=== PATIENT | female | born 1990 | race Caucasian/White ===

== ENCOUNTER 2023-04-23 14:52 | Outpatient (OUT) | payer OTHER, SELFPAY ==
--- NOTE | 2023-04-23 | XR_ITS ---
The [address] [address] Patient Name: IVETTE COREY MRN: [id number] date: 1990 Sex: F Assigned Patient Location: Current Patient Location: Accession/Order Number: [id number] Exam Date: 04/23/2023 15:03 Report Date: 04/23/2023 15:38 At the request of: MEENAKSHI PRIEST Procedure: XR foot [place] min 3V EXAMINATION: XR foot [place] min 3V HISTORY: BILATERAL FOOT PAIN COMPARISON: No relevant comparison available. FINDINGS: RIGHT FINDINGS: BONES: No acute fracture or dislocation. Moderate to severe hallux valgus. Degenerative changes of the first metatarsal-phalangeal joint with joint space narrowing and subchondral cystic changes SOFT TISSUES: Negative. No visible soft tissue swelling. OTHER: Negative. LEFT FINDINGS: BONES: No acute fracture or dislocation. Mild hallux valgus SOFT TISSUES: Negative. No visible soft tissue swelling. OTHER: Negative. XR/XR foot [place] min 3V IMPRESSION: RIGHT CONCLUSION: Moderate to severe hallux valgus LEFT CONCLUSION: Mild hallux valgus Electronically authenticated by: AI VERA Date: 04/23/2023 15:38
== END 2023-04-23 14:53 | disposition home or self-care (01) ==
LOC: EC 14:53
PROVIDERS: Visit Provider Podiatrist Foot & Ankle Surgery
DX: M79.672 Pain in left foot (principal); M79.671 Pain in right foot; M20.12 Hallux valgus (acquired), left foot; M20.11 Hallux valgus (acquired), right foot
CPT/HCPCS: 73630

== ENCOUNTER 2023-05-26 13:19 | Outpatient (OUT) | payer OTHER, SELFPAY ==
--- NOTE | 2023-05-26 13:51 | P.GSHP_ITS ---
History of Present Illness History of Present Illness Chief complaint: hallux valgus and hammertoe right foot Narrative: Patient presents for preadmission testing. The patient reports bunion deformities on both feet, she states she has had bunions for years but noticed they have been worsening as time goes on. She states she wears steel toed boots for work which exacerbates her pain. She states she did try some shoe inserts with no relief of her discomfort. She denies numbness, tingling, weakness, or any other complaints. Review of Systems ROS Narrative REVIEW OF SYSTEMS: Negative except as stated in HPI, ten or more systems reviewed. Constitutional: No fever , chills, weakness ENT: No sore throat or epistaxis Cardiovascular: No edema, chest pain, palpitations, or activity intolerance Respiratory: No shortness of breath, cough, or wheezing Gastrointestinal: No abdominal pain, constipation, diarrhea, or vomiting Genitourinary: No dysuria or hematuria Neurological: No numbness, tingling, weakness, or headache Psychiatric: No mood changes PFSH PFSH Medical History (Updated 05/26/23 @ 13:39 by Radha Bell NP) Foot pain ?M79.673 - Pain in unspecified foot (ICD-10) Hammertoe ?M20.40 - Other hammer toe(s) (acquired), unspecified foot (ICD-10) Hallux valgus ?M20.10 - Hallux valgus (acquired), unspecified foot (ICD-10) Pneumonia ?J18.9 - Pneumonia, unspecified organism (ICD-10) Surgical History (Updated 05/26/23 @ 13:39 by Radha Bell NP) History of tonsillectomy ?Z90.89 - Acquired absence of other organs (ICD-10) Family History (Updated 05/26/23 @ 13:39 by Radha Bell NP) Other Family history of breast cancer Family history of diabetes mellitus Family history of heart disease Family history of hypertension Social History (Updated 05/26/23 @ 13:36 by Radha Bell NP) Within the past year, how often did you have a drink containing alcohol: 2-3 times a week Smoking status: Former smoker Non-prescribed substance use: denies use 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 Highest level of school completed/degree received: some college, no degree Meds Home Medications and Allergies Home Medications ?Medication ?Instructions ?Recorded ?Confirmed ?Type norgestimate 0.25 mg-ethinyl 1 tab PO DAILY 05/26/23 05/26/23 History estradiol 35 mcg tablet (Karen) Allergies Allergy/AdvReac Type Severity Reaction Status Date / Time No Known Drug Allergies Allergy Verified 05/26/23 13:34 Exam Narrative Exam Narrative: Constitutional: Awake, alert, comfortable, well-appearing, nontoxic, interactive, vital signs as charted Head: Normocephalic, atraumatic Neck: Supple, normal appearance, normal range of motion, no meningeal signs, no lymphadenopathy Respiratory: No respiratory distress, breath sounds clear Cardiovascular: Regular rate and rhythm, strong and regular heart tones Musculoskeletal: Normal gait, no swelling or edema, Right foot hallux valgus deformity noted, limited range of motion of the 1st MPJ, 2nd toe deformity noted, good capillary refill, sensation intact Skin: No rashes or induration, no lesions, only visible skin inspected Neuro: No neurological deficits, normal sensation Psychiatric: Oriented ?3, normal affect Assessment and Plan Assessment and Plan (1) Foot pain: (2) Hammertoe: (3) Hallux valgus: Plan Right 1st metatarsal phalangeal joint fusion, correction of 2nd hammertoe and bone graft as needed scheduled with Dr. Bland 06/05/2023.
== END 2023-05-26 13:20 | disposition home or self-care (01) ==
LOC: PST 13:20
PROVIDERS: Visit Provider Podiatrist Foot & Ankle Surgery
DX: Z01.818 Encounter for other preprocedural examination (principal); M20.11 Hallux valgus (acquired), right foot; M20.41 Other hammer toe(s) (acquired), right foot
CPT/HCPCS: G0463

== ENCOUNTER 2023-06-05 06:04 | Day surgery (SDC) | payer OTHER, SELFPAY ==
[2023-05-26 13:49] VITALS: BP 117/76; PULSE 57; TEMP 36.3; O2SAT 100; BMI 29.1
[2023-06-05] VITALS (9 sets, daily range): BP systolic 107–131; BP diastolic 54–84; PULSE 69–88; TEMP 36.2–36.4; O2SAT 94–99; BMI 28.2
--- OUTSIDE RECORDS SUMMARY | 2023-06-05 06:08 | XMS_ITS | CCD ---
Author Organization [facility] Care Team Providers Care Pressure Tester Name Role Phone Unavailable Primary Care Provider Unavailabl e None, None Primary Care Provider Unavailabl e None, None Primary Care Provider Unavailabl e POOL, ELLY E Referring Unavailable NONE, NONE Primary Care Unavailable Medications Current Medications Medication Drug Class(es) Dates Sig (Normalized) Sig (Original) acetaminophen 325 mg oral tablet (1 source) Start: 09-11-2020 take 650 mg by mouth every four hours as needed for fever, then take 4000 mg by mouth every twenty-four hours as needed for fever 650 mg, Oral, EVERY 4 HOURS PRN, Fever, Fever >100.5 F (38 C) or pain 1-10, Starting on Fri09/11/20 at 0156 Maximum dose of acetaminophen is 4000 mg from all sources in 24 hours. benzocaine 200 mg/ml / menthol 5 mg/ml topical spray (1 source) Standardized Chemical Allergen Start: 09-11-2020 apply 1 dose topically twice daily Topical, 2 TIMES DAILY, First dose on Fri09/11/20 at 0215 Apply to perineal area. Patient is capable and may self administer at bedside. docusate sodium 100 mg oral capsule (1 source) Start: 09-11-2020 take 100 mg by mouth twice daily as needed for constipation 100 mg, Oral, 2 TIMES DAILY PRN, Constipation, Starting on Fri09/11/20 at 0156 Do not crush or break. ethinyl estradiol 0.035 mg / norgestimate 0.25 mg oral tablet (5 sources) Progestin, Estrogen Start: 03-12-2023 take 1 tablet by mouth once daily, then take 0.25-35 tablets by mouth once norgestimate-ethiny l estradiol (KATERIN) 0.25-35 MG-MCG per tablet Indications: care following vaginal delivery TAKE 1 TABLET BY MOUTH EVERY DAY 84 tablet 3 03/12/2023 Active Start: 03-06-2022 take 1 tablet by yoko th once daily, then take 0.25-35 tablets by mouth once norgestimate-ethinyl estradiol (KATERIN) 0.25-35 MG-MCG per tablet Indications: care following vaginal delivery TAKE 1 TABLET BY MOUTH EVERY DAY 84 tablet 3 03/06/2022 Active Start: 10-26-2020 take 1 tablet by yoko th once daily norgestimate-ethinyl estradiol (ORTHO-CYCLEN, 28,) 0.25-35 MG-MCG per tablet Indications: care following vaginal delivery Take 1 tablet by mouth daily 3 packet 3 10/26/2020 Active ibuprofen 800 mg oral tablet (1 source) Nonsteroidal Anti-inflammatory Drug Start: 09-11-2020 take 800 mg by mouth every eight hours 800 mg, Oral, EVERY 8 HOURS, First dose on Fri09/11/20 at 0215 Do not crush or break. lanolin 1000 mg/ml topical cream (1 source) Start: 09-11-2020 Topical, PRN, Dry Skin, nipple discomfort, Starting on Fri09/11/20 at 0156, oxytocin (PITOCIN) 10 unit bolus from the bag (1 source) Start: 09-10-2020 oxytocin (PITOCIN) 10 unit bolus from the bag 3 ml sodium chloride 9 mg/ml injection (3 sources) Start: 09-11-2020 10 mL, Intravenous, EVERY 12 HOURS SCHEDULED (2 times per day), First dose on Fri09/11/20 at 0900, Start: 09-11-2020 take 25 mL intraveno usly every hour as needed 25 mL, Intravenous, at 100 mL/hr, PRN, If patient receiving piggyback infusions without ordered maintenance IV fluids or with frequent/long duration piggyback infusions, Starting on Fri09/11/20 at 0156 Administer at the same rate as the piggyback being infused. Start: 09-11-2020 take 10 mL intravenously once 10 mL, Intravenous, PRN, Line Care, Starting on Fri09/11/20 at 0156 After every IV line use witch nessa 500 mg/ml medicated pad (1 source) Start: 09-11-2020 apply 1 dose topically twice daily Topical, 2 TIMES DAILY, First dose on Fri09/11/20 at 0215 Apply to perineal area. Patient is capable and may self administer at bedside. Completed/Discontinued Medications Medication Drug Class(es) Dates Sig (Normalized) Sig (Original) calcium chloride 0.0014 meq/ml / potassium chloride 0.004 meq/ml / sodium chloride 0.103 meq/ml / sodium lactate 0.028 meq/ml injectable solution (1 source) Start: 09-10-2020 End: 09-11-2020 lactated ringers infusion 10 ml lidocaine hydrochloride 10 mg/ml injection (1 source) Antiarrhythmic, Amide Local Anesthetic Start: 09-10-2020 End: 09-11-2020 lidocaine PF 1 % injection 30 mL 1 ml nalbuphine hydrochloride 10 mg/ml injection (1 source) Opioid Agonist/Antagonis t Start: 09-10-2020 End: 09-11-2020 nalbuphine (NUBAIN) injection 10 mg oxytocin (PITOCIN) 30 units in 500 mL infusion (1 source) Start: 09-10-2020 End: 09-11-2020 oxytocin (PITOCIN) 30 units in 500 mL infusion Vit-Fe Fumarate-FA ( VITAMIN PO) (7 sources) End: 09-11-2020 Vit-Fe Fumarate-FA ( VITAMIN PO) Take by mouth 0 09/11/2020 Discontinued Vit-Fe Fumarate-FA ( VITAMIN PO) Take by mouth 0 Active Problems Active Problems Problem Classification Problem Date Documented Date Episodic/Chronic Cancer of cervix (1 source) Low grade squamous intraepithelial lesion on cervical Papanicolaou smear; Translations: [Low grade squamous intraepithelial lesion on cytologic smear of cervix (LGSIL)] Episodic Immunizations and screening for infectious disease (2 sources) Contact with and (suspected) exposure to infections with a predominantly sexual mode of transmission; Translations: [Patient encounter status] Episodic Menstrual disorders (2 sources) Amenorrhea; Translations: [Amenorrhea] Chronic Other female genital disorders (1 source) Abnormal vaginal bleeding; Translations: [Abnormal uterine and vaginal bleeding, unspecified] Chronic Other female genital disorders (1 source) Cervical intraepithelial neoplasia grade 1; Translations: [Mild cervical dysplasia] Episodic Other and delivery including normal (20 sources) Urine test positive; Translations: [Normal ] Onset: 01-14-2021 Resolved: 10-26-2020 03-09-2020 Episodic Other screening for suspected conditions (not mental disorders or infectious disease) (1 source) Patient encounter status; Translations: [Encounter for screening for diabetes mellitus] Episodic Residual codes; unclassified (1 source) Gestation period, 17 weeks; Translations: [17 weeks gestation of ] Episodic Residual codes; unclassified (1 source) Gestation period, 13 weeks; Translations: [13 weeks gestation of ] Episodic Residual codes; unclassified (1 source) Gestation period, 26 weeks; Translations: [26 weeks gestation of ] Episodic Residual codes; unclassified (1 source) Gestation period, 37 weeks; Translations: [37 weeks gestation of ] Episodic Past or Other Problems Problem Classification Problem Date Documented Da te Episodic/Chronic NEGATED: Highlighted row has been ruled out!Unclassified (2 sources) No known active problems Results Test Name Value Interpretation Reference Range Facil ity Cytology Reporton 03-12-2023 Cytology report Cyto stain.thin prep Doc (Cvx/Vag) (NOTE) Path Number: [id number] DIAGNOSIS Imaged ThinPrep Pap - Cervical (1 monolayer slide): Specimen Adequacy: Satisfactory for evaluation. -Endocervical/trans formation zone component is absent. Descriptive Diagnosis: Negative for intraepithelial lesion or malignancy. [employer] Screener: EY Electronically Signed Out Ronak MELENDEZ(ASCP) /04/01/2023 Source of Specimen: A: Imaged ThinPrep Pap - Cervical (1 monolayer slide) HPV Reflex?............ 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 The Pap smear is a screening test primarily for squamous epithelial lesions, which is subject to both false negative and false positive results. Your patient should be reminded to consult you immediately if she experiences any suspicious signs or symptoms, regardless of her Pap smear result. GYNECOLOGIC CYTOLOGY REPORT Patient Name: IVETTE COREY [place] [facility] Rec: [id number] [facility] [employer] [facility] ANATOMIC PATHOLOGY [address] [place] [address]. [place], [place] [address] Normal [facility] CBC With Auto Differentialon 01-11-2021 Absolute Eos # 0.07 [facility] Absolute Immature Granulocyte <0.03 [facility] Absolute Lymph # 2.01 [facility] alth Absolute Coles # 0.45 [facility] lt Basophils (Bld) [#/Vol] 0.03 10*3/uL [facility] Basophils/100 WBC (Bld) 1 % 0 - 2 % [facility] Differential Type NOT REPORTED [facility] Eosinophils/100 WBC (Bld) 1 % 1 - 4 % [facility] Hematocrit (Bld) [Volume fraction] 40.3 % 36.3 - 47.1 % [facility] Hemoglobin.gastrointesti nal spec 1 Ql (Stl) 13.2 g/dL 11.9 - 15.1 g/dL [facility] Immature granulocytes/100 WBC (Bld) 0 % 0 [facility] Lymphocytes/100 WBC (Bld) 39 % 24 - 43 % [facility] MCH (RBC) [Entitic mass] 30.9 pg 25.2 - 33.5 pg [facility] MCHC (RBC) [Mass/Vol] 32.8 g/dL 28.4 - 34.8 g/dL [facility] MCV (RBC) [Entitic vol] 94.4 fL 82.6 - 102.9 fL [facility] Monocytes/100 WBC (Bld) 9 % 3 - 12 % [facility] NRBC Automated 0.0 0.0 per 100 WBC [facility] Platelet distribution width (Bld) [Ratio] 11.8 % 11.8 - 14.4 % [facility] Platelet Estimate NOT REPORTED [facility] Platelet mean volume (Bld) [Entitic vol] 9.5 fL 8.1 - 13.5 fL [facility] Platelets (Bld) [#/Vol] 239 10*3/uL [facility] RBC (Bld) [#/Vol] 4.27 10*6/uL 3.95 - 5.1 1 m/uL [facility] RBC (Bld) [#/Vol] NOT REPORTED [facility] Segmented neutrophils/100 WBC (Bld) 50 % 36 - 65 % [employer] Segs Absolute 2.61 [employer] h WBC (Bld) [#/Vol] 5.2 10*3/uL [facility] WBC (Bld) [#/Vol] NOT REPORTED [facility] hCG, Quantitative, on 01-11-2021 hCG Quant <1 <5 IU/L [employer] Comment on above: Non-preg premeno <=5 Postmeno <=8 Male <=3 If HCG results do not concur with clinical observations, additional testing to confirm results is recommended. Elevated results not associated with may be found in patients with other diseases such as tumors of the germ cells (testis, ovaries, etc.), bladder, pancreas, stomach, lungs, and liver. [employer] [employer] CBC auto differentialOrdered By: Elly Lerner on 09-10-2020 Absolute Eos # 0.07 [employer] Work Phone: Absolute Immature Granulocyte 0.12 [employer] Work Phone: Absolute Lymph # 2.16 [employer] [facility] Work Phone: Absolute Coles # 0.75 [employer] Work Phone: Basophils (Bld) [#/Vol] 0.03 10*3/uL [employer] Work Phone: Basophils/100 WBC (Bld) 0 % 0 - 2 % [facility] Work Phone: Differential Type NOT REPORTED [employer] Work Phone: Eosinophils/100 WBC (Bld) 1 % 1 - 4 % [facility] Work Phone: Hematocrit (Bld) [Volume fraction] 39.0 % 36.3 - 47.1 % [facility] Work Phone: Hemoglobin.gastrointesti nal spec 1 Ql (Stl) 13.3 g/dL 11.9 - 15.1 g/dL [employer] Work Phone: Immature granulocytes/100 WBC (Bld) 1 % High 0 [facility] Work Phone: Interpretation and review of laboratory results Abnormal [employer] Phone: Lymphocytes/100 WBC (Bld) 23 % Low 24 - 43 % [employer] Phone: MCH (RBC) [Entitic mass] 33.4 pg 25.2 - 33.5 pg [employer] Phone: MCHC (RBC) [Mass/Vol] 34.1 g/dL 28.4 - 34.8 g/dL [employer] Phone: MCV (RBC) [Entitic vol] 98.0 fL 82.6 - 102.9 fL [employer] Phone: Monocytes/100 WBC (Bld) 8 % 3 - 12 % [facility] Phone: NRBC Automated 0.0 0.0 per 100 WBC [employer] Phone: Platelet distribution width (Bld) [Ratio] 12.5 % 11.8 - 14.4 % [employer] Phone: Platelet Estimate NOT REPORTED [employer] Phone: Platelet mean volume (Bld) [Entitic vol] 9.4 fL 8.1 - 13.5 fL [employer] Phone: Platelets (Bld) [#/Vol] 157 10*3/uL [employer] Phone: RBC (Bld) [#/Vol] 3.98 10*6/uL 3.95 - 5.1 1 m/uL [employer] Phone: RBC (Bld) [#/Vol] NOT REPORTED [facility] Phone: Segmented neutrophils/100 WBC (Bld) 67 % High 36 - 65 % [employer] Phone: Segs Absolute 6.09 [employer] Work Phone: WBC (Bld) [#/Vol] 9.2 10*3/uL [facility] Work Phone: WBC (Bld) [#/Vol] NOT REPORTED [facility] Work Phone: [facility] Work Phone: DRUG SCREEN MULTI URINEOrder ed By: Elly Lerner on 09-10-2020 Amphetamine Screen, Ur Negative NEGATIVE [facility] Work Phone: Barbiturate Screen, Ur Negative NEGATIVE [facility] Work Phone: Benzodiazepine Screen, Urine Negative NEGATIVE [facility] Work Phone: Buprenorphine Urine Negative NEGATIVE [facility] Work Phone: Cannabinoid Scrn, Ur Negative NEGATIVE [facility] Work Phone: Cocaine Metabolite, Urine Negative NEGATIVE [facility] Work Phone: MDMA, Urine NOT REPORTED NEGATIVE [facility] Work Phone: Methadone Screen, Urine Negative NEGAT[facility] Work Phone: Methamphetamine, Urine Negative NEGATIVE [facility] Work Phone: Opiates, Urine Negative NEGATIVE [facility] Work Phone: Oxycodone Screen, Ur Negative NEGATIVE [facility] Work Phone: Phencyclidine, Urine Negative NEGATIVE [facility] Work Phone: Propoxyphene, Urine Negative NEGATIVE [facility] Work Phone: Test Information NOT REPORTED [facility] Work Phone: Tricyclic Antidepressants, Urine Negative NEGATIVE [facility] Work Phone: Comment on above: Drug screen results are to be used for medical purposes only. All positive results are unconfirmed. Testing for employment or legal uses should be sent to a reference laboratory for confirmation. [facility] Work Phone: OB FOLLOW UP TRANSABDOMIN AL APPROACHon 07-05-2020 US OB FOLLOW UP TRANSABDOMINAL APPROACH 31.0 WK IUP EFW:65% CL:3.6cm UYEN:17.7cm HR:158bpm posterior placenta, cephalic presentation Active movements Grade 2 placenta Interpreted by: CARLEY Campos CNM, MD Signed by: Haseeb Montero MD 07/05/20 Final result Normal [facility] Glucose tolerance, 1 hourOrd ered By: Elly Lerner on 06-19-2020 GLU ADMN Glucola [facility] Phone: Glucose tolerance screen 50g 104 mg/dL 70 - 135 mg/dL [employer] Phone: HemoglobinOrdered By: Roxann Lerner on 06-19-2020 Hemoglobin.gastrointesti nal spec 1 Ql (Stl) 11.8 g/dL Low 11.9 - 15.1 g/dL [facility] Phone: Interpretation and review of laboratory results Abnormal [facility] Phone: US OB 14 PLUS WEEKS SINGLE O R FIRST GESTATIONon 04-26-2020 OB 14 PLUS WEEKS SINGLE OR FIRST GESTATION 20.0WK IUP CL: 4.3 cm HR: 155 bpm Posterior placenta, breech presentation Ovaries: Adnexa WNL Gender: male Active movements All visualized anatomy WNL Interpreted by: CARLEY Campos CNM, MD Signed by: Haseeb Montero MD 04/26/20 Final result Normal [facility] HIV Screenon 02-08-2020 HIV Ag/Ab NONREACTIVE NONREACTIVE [place], [place] Comment on above: No laboratory eviden ce of HIV infection. If acute HIV infection is suspected, consider testing for HIV-1 RNA. TYPE AND SCREENon 1 04-10-2019 ABO/Rh Positive [place], [place] Urine Drug Screen, Comprehen siveon 02-08-2020 Amphetamine Screen, Ur Negative NEGATIVE [place], [place] Barbiturate Screen, Ur Negative NEGATIVE [facility] [place] [place] Benzodiazepine Screen, Urine Negative NEGATIVE [facility] [place] Buprenorphine Urine Negative NEGATIVE [facility] [place] [place] Cannabinoid Scrn, Ur Negative NEGATIVE [facility] [place] [place] Cocaine Metabolite, Urine Negative NEGATIVE [facility] [place] MDMA, Urine NOT REPORTED NEGATIVE [facility] [place] Methadone Screen, Urine Negative NEGATIVE [facility] [place] [place] Methamphetamine, Urine Negative NEGATIVE [facility] [place] [place] Opiates, Urine Negative NEGATIVE [facility] [place] Oxycodone Screen, Ur Negative NEGATIVE [facility] [place] [place] Phencyclidine, Urine Negative NEGATIVE [facility] [place] [place] Propoxyphene, Urine Negative NEGATIVE [facility] [place] [place] Test Information NOT REPORTED [facility]- [place], [place] Tricyclic Antidepressants, Urine Negative NEGATIVE [facility] [place] [place] Comment on above: Drug screen results are to be used for medical purposes only. All positive results are unconfirmed. Testing for employment or legal uses should be sent to a reference laboratory for confirmation. Vital Signs Date Time Vital Sign Value Performing Clinician Kika peck 09-12-2020 13:51-0400 Body temperature 97.9 [degF] [employer] Work Phone: [facility] Phone: 09-12-2020 13:51-0400 Diastolic blood pressure 77 mm[Hg] [employer] Work Phone: [facility] Phone: 09-12-2020 13:51-0400 Heart rate 103 /min [employer] Work Phone: [facility] Phone: 09-12-2020 13:51-0400 Respiratory rate 18 /min [employer] Work Phone: [facility] Phone: 09-12-2020 13:51-0400 Systolic blood pressure 129 mm[Hg] [employer] Work Phone: [facility] Phone: Encounters Encounter Date Encounter Type Care Provider Facility Start: 03-12-2023 End: 03-13-2023 ambulatory ELLY Shah [facility] Start: 03-12-2023 Encounter for gynecological examination (general) (routine) without abnormal findings [facility] Start: 03-12-2023 End: 03-12-2023 Patient encounter procedure None None [facility] Start: 03-12-2023 End: 03-12-2023 Subsequent hospital visit by physician None None [facility] Laboratory Comment on above: Well woman exam with routine gynecological exam Start: 03-06-2022 End: 03-06-2022 Patient encounter procedure None None [facility] Start: 03-06-2022 End: 03-06-2022 Subsequent hospital visit by physician None None [facility] Comment on above: Well woman exam with routine gynecological exam; Screening for HPV (human papillomavirus); Dysplasia of cervix, low grade (BECKY 1) Start: 01-11-2021 End: 01-11-2021 Subsequent [facility] Comment on above: Abnormal vaginal ble eding Start: 01-03-2021 End: 01-03-2021 Subsequent hospital visit by [facility] Comment on above: 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 Start: 09-10-2020 End: 09-12-2020 Evaluation and management of inpatient Elly Lerner LICENSED PRACTICAL NURSE - CNM Work Phone: [facility] Start: 08-24-2020 End: 08-24-2020 Subsequent hospital visit by physician [facility] Comment on above: 37 weeks gestation o f Start: 06-19-2020 End: 06-19-2020 Subsequent hospital visit by physician [facility] Comment on above: Encounter for screen ing examination for impaired glucose regulation and diabetes mellitus; 26 weeks gestation of Start: 04-06-2020 End: 04-06-2020 Subsequent hospital visit by physician [facility] Comment on above: 17 weeks gestation o f ; Encounter for supervision of normal first , second trimester Start: 03-09-2020 End: 03-09-2020 Subsequent hospital visit by physician [facility] Comment on above: 13 weeks gestation o f ; Chlamydia contact, treated Start: 02-08-2020 End: 02-08-2020 Subsequent hospital visit by physician [facility] Comment on above: Amenorrhea; Positive urine test; Encounter for supervision of normal first in first trimester Procedures Date Procedure Procedure Detail Performing Clinician Start: 03-06-2022 Microscopic observat ion [Identifier] in Cervix by Cyto stain None None Start: 01-11-2021 Gonadotropin chorion ic quantitative Elly E Pool LICENSED PRACTICAL NURSE - CNM Work Phone: Start: 09-10-2020 Blood count complete auto&auto difrntl wbc Elly E Pool LICENSED PRACTICAL NURSE - CNM Work Phone: Start: 09-10-2020 Drug screen class list a Elly E Pool LICENSED PRACTICAL NURSE - CNM Work Phone: Start: 06-19-2020 Blood count hemoglobin Elly E Pool LICENSED PRACTICAL NURSE - CNM Work Phone: Start: 03-09-2020 Microscopic observat ion [Identifier] in Cervix by Cyto stain Start: 02-08-2020 Antibody screen Start: 02-08-2020 Antibody hiv-1&hiv-2 single result Elly E Pool Work Phone: Start: 02-08-2020 Blood typing serologic abo Elly E Pool Work Phone: Start: 02-08-2020 Obstetric panel Kathlee n E Pool Work Phone: Start: 02-08-2020 Drug screen, qualitate/multi Elly E Pool Work Phone: Plan of Treatment Date Care Activity Detail Author Start: 07-05-2030 DTaP/Tdap/Td vaccine (8 - Td or Tdap) DTaP/Tdap/Td vaccine (8 - Td or Tdap) [facility] [employer] Start: 03-06-2027 Screening for malign ant neoplasm of cervix [facility] Start: 03-09-2025 Screening for malign ant neoplasm of cervix [facility] Start: 03-06-2025 Screening for malign ant neoplasm of cervix Pap smear [facility] Start: 03-15-2024 End: 03-15-2024 Patient encounter procedure 03/15/2024 1:00 PM EST Office Visit [facility] [address] [place] [address] Elly Lerner APRN - CNM [address] [place] [address] yearly [facility] Comment on above: yearly Start: 03-12-2024 Depression Screen Depression Screen [facility] Start: 03-12-2023 End: 03-12-2023 Patient encounter procedure 03/12/2023 Office Visit Obstetrics and Gynecology Elly Lerner APRN - CNM [address] [facility] [place] [address] [facility] Start: 03-09-2023 Screening for malign ant neoplasm of cervix [facility] Start: 09-24-2022 Influenza vaccination Flu vaccine (# 1) [facility] Start: 01-03-2022 End: 01-03-2022 Patient encounter procedure 01/03/2022 Office Visit Obstetrics and Gynecology Elly Lerner APRN - CNM [address] [place] [address] [facility] Start: 09-24-2021 Influenza vaccination Flu vaccine (# 1) [facility] Start: 01-15-2021 End: 01-15-2021 Patient encounter procedure 01/15/2021 Appointment Radiology [facility] Ultrasound Start: 10-25-2020 Influenza vaccination [facility] Start: 10-24-2020 End: 10-24-2020 ambulatory 10/24/2020 Visit Obstetrics and Gynecology Elly Lerner APRN - CNM [address] [place] [address] [facility] Start: 09-26-2020 End: 09-26-2020 Telemedicine consultation with patient 09/26/2020 Telemedicine Obstetrics and Gynecology Elly Lerner APRN - CNTiffani [address] [place] [address] [phone] [facility] Start: 09-11-2020 End: 09-11-2020 Patient encounter procedure 09/11/2020 Routine Obstetrics and Gynecology Winifred Torres, CARLEY - CNTiffani [address] [place] [address] [phone] [facility] Start: 09-07-2020 End: 09-07-2020 Patient encounter procedure 09/07/2020 Routine Obstetrics and Gynecology Elly Lerner APRN - CNM [address] [place] [address] [phone] [facility] Start: 08-30-2020 End: 08-30-2020 Patient encounter procedure 08/30/2020 Routine Obstetrics and Gynecology Elly Lerner APRN - SHUKRI [address] [place] [address] [phone] [facility] Start: 07-05-2020 End: 07-05-2020 Ancillary Procedure [facility] Start: 06-20-2020 End: 06-20-2020 Patient encounter procedure 06/20/2020 Routine Obstetrics and Gynecology Elly Lerner APRN - SHUKRI [address] [place] [address] [phone] [facility] Start: 04-26-2020 End: 04-26-2020 Ancillary Procedure [facility] Start: 04-20-2020 End: 04-20-2020 Office Visit 04/20/2020 Office Visit Obstetrics and Gynecology Elly Lerner APRN - CNTiff[place] [address] [place] [address] [phone] [facility] Start: 04-08-2020 Screening for malign ant neoplasm of cervix Cervical cancer screen [place], [place] Start: 04-06-2020 End: 04-06-2020 Routine 04/06/2020 Routine Obstetrics and Gynecology Elly Lerner APRN - SHUKRI [address] [place] [address] [phone] [facility] Start: 02-16-2020 End: 02-16-2020 Ancillary Procedure 02/16/2020 Ancillary Procedure Obstetrics and Gynecology Elly Lerner APRN - SHUKRI [address] [facility] [facility] [address] [place] [address] [phone] [facility] Start: 10-26-2019 Influenza vaccination Flu vaccine (# 1) [place], [place] Start: 2009 DTaP/Tdap/Td vaccine (1 - Tdap) DTaP/Tdap/Td vaccine (1 - Tdap) [place], [place] Start: 2006 COVID-19 Vaccine (1) COVID-19 Vaccin e (1) [facility] Work Phone: Start: 2002 COVID-19 Vaccine (1) COVID-19 Vaccin e (1) [facility] Start: 2002 Depression Screen Depression Screen [facility] Start: 06-19-1995 COVID-19 Vaccine (1) COVID-19 Vaccin e (1) [facility] Start: 02-18-1995 Varicella vaccine (2 of 2 - 2-dose childhood series) Varicella vaccine (2 of 2 - 2-dose childhood series) [facility] Start: 06-19-1991 Varicella vaccine (1 of 2 - 2-dose childhood series) Varicella vaccine (1 of 2 - 2-dose childhood series) [place] Start: 1990 COVID-19 Vaccine (#1) COVID-19 Vacci ne (#1) [facility] End: 04-06-2020 Alpha Fetoprotein, Maternal Alpha Fetoprotein, Maternal Lab Routine 17 weeks gestation of Encounter for supervision of normal first , second trimester 1 Occurrences starting 04/06/2020 until 04/06/2020 [employer] Phone: Comment on above: 1 Occurrences starti ng 04/06/2020 until 04/06/2020 Alpha Fetoprotein, Maternal Alpha Fetoprotein, Maternal Lab Routine 17 weeks gestation of Encounter for supervision of normal first , second trimester 04/06/2020 10:09 AM [employer] Phone: End: 03-09-2020 C.trachomatis N.gonorrhoeae DNA, Thin Prep C.trachomatis N.gonorrhoeae DNA, Thin Prep Microbiology Routine 13 weeks gestation of Chlamydia contact, treated 1 Occurrences starting 03/09/2020 until 03/09/2020 [place] Comment on above: 1 Occurrences starti ng 03/09/2020 until 03/09/2020 C.trachomatis N.gonorrhoeae DNA, Thin Prep C.trachomatis N.gonorrhoeae DNA, Thin Prep Microbiology Routine 13 weeks gestation of Chlamydia contact, treated 03/09/2020 11:41 AM [facility] [place] End: 02-08-2020 C.trachomatis N.gonorrhoeae DNA, Urine C.trachomatis N.gonorrhoeae DNA, Urine Microbiology Routine Amenorrhea Positive urine test Encounter for supervision of normal first in first trimester 1 Occurrences starting 02/08/2020 until 02/08/2020 [place] Comment on above: 1 Occurrences starti ng 02/08/2020 until 02/08/2020 C.trachomatis N.gonorrhoeae DNA, Urine C.trachomatis N.gonorrhoeae DNA, Urine Microbiology Routine Amenorrhea Positive urine test Encounter for supervision of normal first in first trimester 02/08/2020 9:00 AM [facility] [place] End: 08-24-2020 Culture, Strep B Screen, Vaginal/Rectal Culture, Strep B Screen, Vaginal/Rectal Microbiology Routine 37 weeks gestation of 1 Occurrences starting 08/24/2020 until 08/24/2020 [employer] Phone: Comment on above: 1 Occurrences starti ng 08/24/2020 until 08/24/2020 Culture, Strep B Scr een, Vaginal/Rectal Culture, Strep B Screen, Vaginal/Rectal Microbiology Routine 37 weeks gestation of 08/24/2020 11:53 AM [facility] [employer] Phone: End: 02-08-2020 Culture, Urine Culture, Urine Microbiology Routine Amenorrhea Positive urine test Encounter for supervision of normal first in first trimester 1 Occurrences starting 02/08/2020 until 02/08/2020 [facility] [place] Comment on above: 1 Occurrences starti ng 02/08/2020 until 02/08/2020 Culture, Urine Culture, Urine Microbiology Routine Amenorrhea Positive urine test Encounter for supervision of normal first in first trimester 02/08/2020 9:00 AM [place] End: 03-09-2020 Cytopathology procedure, preparation of smear, genital source PAP SMEAR Lab Routine 13 weeks gestation of 1 Occurrences starting 03/09/2020 until 03/09/2020 [facility] [place] Comment on above: 1 Occurrences starti ng 03/09/2020 until 03/09/2020 End: 03-06-2022 Cytopathology procedure, preparation of smear, genital source PAP SMEAR Lab Routine Well woman exam with routine gynecological exam Screening for HPV (human papillomavirus) Dysplasia of cervix, low grade (BECKY 1) 1 Occurrences starting 03/06/2022 until 03/06/2022 [facility] [employer] Phone: Comment on above: 1 Occurrences starti ng 03/06/2022 until 03/06/2022 End: 03-12-2023 Cytopathology procedure, preparation of smear, genital source PAP SMEAR Lab Routine Well woman exam with routine gynecological exam 1 Occurrences starting 03/12/2023 until 03/12/2023 [facility] [employer] Comment on above: 1 Occurrences starti ng 03/12/2023 until 03/12/2023 End: 02-08-2020 Hepatitis C Antibody Hepatitis C Antibody Lab Routine Amenorrhea Positive urine test Encounter for supervision of normal first in first trimester 1 Occurrences starting 02/08/2020 until 02/08/2020 [facility] [place] Comment on above: 1 Occurrences starti ng 02/08/2020 until 02/08/2020 Hepatitis C Antibody Hepatitis C Antibody Lab Routine Amenorrhea Positive urine test Encounter for supervision of normal first in first trimester 02/08/2020 9:56 AM EST [place] PROFILE I PROF ILE I Lab Routine Amenorrhea Positive urine test Encounter for supervision of normal first in first trimester 02/08/2020 9[facility] [facility] End: 01-03-2021 Surgical Pathology Surgical Pathology Lab Routine LGSIL on Pap smear of cervix 1 Occurrences starting 01/03/2021 until 01/03/2021 [employer] Work Phone: Comment on above: 1 Occurrences starti ng 01/03/2021 until 01/03/2021 Immunizations Immunization Date Immunization Notes Care Provider Fa cility 09-11-2020 diphtheria, tetanus toxoids and acellular pertussis vaccine, unspecified formulation [facility] LICENSED PRACTICAL NURSE - CNM Work Phone: [employer] Work Phone: 09-11-2020 measles, mumps and rubella virus vaccine Elly [employer] LICENSED PRACTICAL NURSE - CNM Work Phone: [employer] Work Phone: 07-05-2020 tetanus toxoid, redu valery diphtheria toxoid, and acellular pertussis vaccine, adsorbed [facility] [employer] Payers Date Payer Category Payer Unknown [id number] 2021-2021 [address] [address] [place] [address] [id number] 2019 Unknown [id number] 2019 Unknown [id number] 2017 Unknown BCBS BCBS - [place] P PO [id number] 2017-Present [address] [place] [address] [id number] 1990 Unknown [id number] Social History Date Type Detail Facility Start: 02-08-2020 End: 03-06-2022 Tobacco smoking status NHIS Former sm[place] History of tobacco use Cigarette [place] Start: 02-08-2020 End: 03-06-2022 Tobacco use and exposure Never used [place] Start: 02-08-2020 End: 01-03-2021 Alcohol intake Ex-drinker (finding) [facility] Start: 03-28-2016 Alcohol Comment Social [place], [place] Start: 12-22-2019 [place], [place] Start: 1990 Sex Assigned At Not on file [place] Exposure to SARS-CoV -2 (event) Not sure [place] History of tobacco use Current smoker [facility] Work Phone: Start: 03-06-2022 End: 03-12-2023 Alcohol intake Current drinker of alcohol (finding) [facility] [employer] Phone: Start: 1990 Sex Assigned At Female [facility] Start: 03-12-2023 History of Social function [facility] Start: 03-12-2023 Tobacco use panel [facility] Patient Health Questionnaire 9 item (PHQ-9) total score [Reported] 0 [facility] Start: 04-26-2021 Gender identity Identifies as female gender (finding) [facility] Hospital Discharge instructions 09-12-2020 Instructions Note Date & Type Note Facility 09-12-2020 Hospital Discharg e instructions Nubia Ren RN - 09/12/2020 Follow-up with your OB doctor as specified. [facility] OB Department phone: Dr. Kylah DERAS Dr. Laureen DERAS [address] [facility] [address] [place] [address] [place] [address] Laureen Sylvester CN [address] [facility] [id number] [phone] Leeann Sharif, MSN, LICENSED PRACTICAL NURSE, CNM [facility] [address] [facility] [address] [address] [facility] [id number] Winifred Hays CNM [address] [place] [address] [place] [address] Angi Terrell CNM [address] [place] [address] [place] [address] [phone] DIET Eat a well balanced diet focusing on foods high in fiber and protein. Drink plenty of fluids especially water. To avoid constipation you may take a mild stool softener as recommended by your doctor or immigration officer. ACTIVITY Gradually increase your activity. Resume exercise regimen only after advice by your doctor or immigration officer. Avoid lifting anything heavier than a gallon of milk for SIX weeks. Avoid driving until your doctor or immigration officer has given their approval. Rise slowly from a lying to sitting and then a standing position. Climb stairs one at a time. Use caution when carrying your baby up and down the stairs. NO SEXUAL Activity for 4-6 weeks or until advised by your doctor; Nothing in vagina: intercourse, tampons, or douching. Be prepared to discuss family planning at your follow-up OB visit. You may feel tired or have a lack of energy. You may continue your vitamin to replenish nutrients post delivery. Nap when baby naps to catch up on sleep. EMOTIONS You may feel hinkle, sad, teary, & overwhelmed. Contact your OB provider if you feel you may be showing signs of depression, or have thoughts of harming yourself or your infant. If will not stop crying, contact another adult for help or place in their crib on their back and take a break. NEVER shake your . BLEEDING Vaginal bleeding will decrease in amount over the next few weeks. You will notice that as your activity increases, your flow may increase. This is your body's way of telling you, you need to take things easier and rest more often. Call your care provider if you are saturating more than one maxi pad in an hour & resting does not help. BREAST CARE Take medications as recommended by your doctor or immigration officer for pain If you develop a warm, red, tender area on your breast or develop a fever contact your OB provider. For moms: If you become engorged, feeding may be more difficult or painful for 1-2 days. You may find it helpful to hand express some milk so that the can latch on more easily. While , continue to take your vitamins as directed by your doctor or immigration officer. Refer to the booklet in the folder/binder for more information. If you feel you need more assistance or have questions, please call Thuy Snyder IBCLC, acura sales consultant, at or the OB department to schedule an appointment or phone consultation. For more FREE help, visit the Support Group on Friday evenings at 7 pm in the OB department. For NON- moms: You may apply ice packs to your breasts over your bra for twenty minutes at a time for comfort. Avoid stimulation to your breasts, when showering allow the water to strike your back not your breasts. Wear a good fitting bra until your milk dries, such as a sports bra. INCISIONAL CARE / MARIEL CARE If you have an acticoat dressing in place after your please leave your dressing in place for one week until you follow up with your provider. They will remove this dressing in the office when you see them. If you have a EV negative pressure wound dressing please leave the dressing in place for 7 days after delivery. Your health care provider will remove the dressing at your one week incisional check. You may shower with your EV dressing, however the EV pump should be disconnected and placed in a safe location where it will not get wet. To disconnect the pump from the dressing, press the orange button to pause the therapy, unscrew the two part connector, and place the pump somewhere safe. While disconnected, ensure the end of the tubing attached to the dressing is facing downward so that water does not enter the tubing. Then re-connect the pump after your shower is complete. If your dressing starts to peel up or becomes soiled prior to your appointment with your provider, you may remove the dressing and clean your incision as directed below. Clean your incision in the shower with mild soap. After shower pat the incision area dry and allow the area open to air. If used, Steri-strips should be completely removed by 2 weeks but you may remove them as they become loose or soiled. If used, [place] should be removed by your care provider. If used/ordered, an abdominal binder may provide support for your incision. Use the mariel-bottle after toileting until bleeding stops. Cleanse your perineum from front to back If used, stitches will dissolve in 4-6 weeks. You may use a sitz bath or soak in a clean tub as needed for comfort. Kegel exercises will help restore bladder control. SWELLING Try to keep your legs elevated when you are sitting. When lying down keep your legs elevated. When wearing stocking or socks, make sure they are not too tight. WHEN TO CALL THE DOCTOR If you have a temp of 100.6 or more. If your bleeding has increased and you are saturating a pad in an hour. Your abdomen is tender to touch. You are passing blood clots bigger than the size of a lemon. If you are experiencing extreme weakness or dizziness. If you are having flu-like symptoms such as achy muscles or joints. There is a foul smell or a green color to your vaginal bleeding. If you have pain that cannot be relieved. You have persistent burning or frequency with urination. Call if you have concerns about your well-being. You are unable to sleep, eat, or are having thoughts of harming yourself or your baby. You have swelling, bleeding, drainage, foul odor, redness, or warmth in/around your incision or stitches. You have a red, warm, tender area in your calf. documented in this encounter [employer] Phone: Hospital course Narrative 09-12-2020 Winifred Torres APRN - AUGUSTAM - 09/12/2020 8:38 AM EDT Note Date & Type Note Facility 09-12-2020 Hospital course Narrative Obstetrical Discharge Form Gestational Age:39w4d Antepartum complications: none Date of Delivery: 09/10/20 Type of Delivery: Delivered By: Juan Lerner APRN, CNM Assisted By:N/A} Baby: male Anesthesia: none Intrapartum complications: None Feeding method: breast Blood type: A POSITIVE Rubella: Rubella Antibody, IGG Date Value Ref Range Status 02/08/2020 158.8 IU/mL Final Comment: REFERENCE RANGE: <5.0 NON-REACTIVE (non-immune) 5.0 TO 9.9 EQUIVOCAL >=10.0 REACTIVE (immune) T. Pallidium, IGG: T. pallidum, IgG Date Value Ref Range Status 02/08/2020 NONREACTIVE NONREACTIVE Final Comment: T. pallidum antibodies are not detected. There is no serological evidence of infection with T. pallidum (early primary syphilis cannot be excluded). Retest in 2-4 weeks if syphilis is clinically suspect. Hepatitis B Surface Antigen: Hepatitis B Surface Ag Date Value Ref Range Status 02/08/2020 NONREACTIVE NONREACTIVE Final HIV: No results found for: [id number] Results for orders placed or performed during the hospital encounter of 09/10/20 DRUG SCREEN MULTI URINE Result Value Ref Range Amphetamine Screen, Ur NEGATIVE NEGATIVE Barbiturate Screen, Ur NEGATIVE NEGATIVE Benzodiazepine Screen, Urine NEGATIVE NEGATIVE Cocaine Metabolite, Urine NEGATIVE NEGATIVE Methadone Screen, Urine NEGATIVE NEGATIVE Opiates, Urine NEGATIVE NEGATIVE Phencyclidine, Urine NEGATIVE NEGATIVE Propoxyphene, Urine NEGATIVE NEGATIVE Cannabinoid Scrn, Ur NEGATIVE NEGATIVE Oxycodone Screen, Ur NEGATIVE NEGATIVE Methamphetamine, Urine NEGATIVE NEGATIVE Tricyclic Antidepressants, Urine NEGATIVE NEGATIVE MDMA, Urine NOT REPORTED NEGATIVE Buprenorphine Urine NEGATIVE NEGATIVE Test Information NOT REPORTED CBC auto differential Result Value Ref Range WBC 9.2 3.5 - 11.3 k/uL RBC 3.98 3.95 - 5.11 m/uL Hemoglobin 13.3 11.9 - 15.1 g/dL Hematocrit 39.0 36.3 - 47.1 % MCV 98.0 82.6 - 102.9 fL MCH 33.4 25.2 - 33.5 pg MCHC 34.1 28.4 - 34.8 g/dL RDW 12.5 11.8 - 14.4 % Platelets 157 138 - 453 k/uL MPV 9.4 8.1 - 13.5 fL NRBC Automated 0.0 0.0 per 100 WBC Differential Type NOT REPORTED Seg Neutrophils 67 (H) 36 - 65 % Lymphocytes 23 (L) 24 - 43 % Monocytes 8 3 - 12 % Eosinophils % 1 1 - 4 % Basophils 0 0 - 2 % Immature Granulocytes 1 (H) 0 % Segs Absolute 6.09 1.50 - 8.10 k/uL Absolute Lymph # 2.16 1.10 - 3.70 k/uL Absolute Coles # 0.75 0.10 - 1.20 k/uL Absolute Eos # 0.07 0.00 - 0.44 k/uL Basophils Absolute 0.03 0.00 - 0.20 k/uL Absolute Immature Granulocyte 0.12 0.00 - 0.30 k/uL WBC Morphology NOT REPORTED RBC Morphology NOT REPORTED Platelet Estimate NOT REPORTED complications: none Discharge Medication: There are no discharge medications for this patient. Admit date: 09/10/2020 5:00 AM Discharge Date: 09/12/2020 Discharged to: Home in stable condition Plan: Follow up 2 and 6 weeks visits documented in this encounter [employer] Phone: History of Present illness Narrative 09-12-2020 Winifred Torres, LICENSED PRACTICAL NURSE [facility] - 09/12/2020 8:37 AM Elly Hussein LICENSED PRACTICAL NURSE [facility] - 09/11/2020 7:58 AM Betzaida Cabrera RN - 09/10/2020 11:22 PM Betzaida Cabrera RN - 09/10/2020 11:00 PM EDT Note Date & Type Note Facility 09-12-2020 History of Present illness Narrative Department of Obstetrics and Gynecology Labor and Delivery Post Progress Note SUBJECTIVE: 2nd day , denies c/o OBJECTIVE: Vitals: BP 121/71 Pulse 69 Temp 97.5 F (36.4 C) Resp 20 LMP 12/08/2019 (Approximate) Unknown Patient Vitals for the past 24 hrs: BP Temp Temp src Pulse Resp 09/12/20 0744 121/71 97.5 F (36.4 C) 69 20 09/12/20 0112 (!) 110/57 98.1 F (36.7 C) 69 16 09/11/20 2016 (!) 106/57 98.6 F (37 C) 84 16 09/11/20 1526 136/71 97.9 F (36.6 C) Oral 84 16 09/11/20 1130 122/69 98.6 F (37 C) Oral 93 16 ABDOMEN: normal shape, position and consistency GENITAL/URINARY: External Genitalia: General appearance; normal, Hair distribution; normal, Lesions absent Uterus: Size normal, Tenderness absent Breast:normal appearance, no masses or tenderness Cor: RRR no Murmurs Pulmonary: clear to auscultation anterior and posterior Extremities: no Clubbing cyanosis or ecchymosis DATA: CBC: Lab Results Component Value Date WBC 9.2 09/10/2020 RBC 3.98 09/10/2020 HGB 13.3 09/10/2020 HCT 39.0 09/10/2020 MCV 98.0 09/10/2020 MCH 33.4 09/10/2020 MCHC 34.1 09/10/2020 RDW 12.5 09/10/2020 PLT 157 09/10/2020 MPV 9.4 09/10/2020 ASSESSMENT : Active Problems: Encounter for elective induction of labor Plan: delivered (normal spontaneous vaginal delivery) Plan: Normal delivery Plan: Plan: D/c home, rto 2 and 6 weeks routine instructions Department of Obstetrics and Gynecology Labor and Delivery Post Progress Note SUBJECTIVE: Pt holding baby lovingly. Pt states she has been up to the bathroom 2 times. Pt denies needs at this time. OBJECTIVE: Vitals: BP 118/63 Pulse 74 Temp 97.9 F (36.6 C) (Oral) Resp 16 LMP 12/08/2019 (Approximate) Unknown Patient Vitals for the past 24 hrs: BP Temp Temp src Pulse Resp 09/11/20 0705 118/63 97.9 F (36.6 C) Oral 74 16 09/11/20 0431 112/60 98.2 F (36.8 C) 83 17 09/11/20 0210 115/73 98 09/11/20 0157 117/74 86 09/11/20 0140 (!) 111/55 90 07/19/21 0125 (!) 155/74 09/11/20 0108 (!) 116/55 97.4 F (36.3 C) 72 09/11/20 0054 (!) 119/59 94 18 09/11/20 0043 131/75 93 09/11/20 0037 117/75 103 17 09/11/20 0032 123/69 90 18 09/11/20 0027 126/71 82 17 09/11/20 0023 125/72 97.8 F (36.6 C) 90 18 09/11/20 0015 130/63 98.2 F (36.8 C) 96 09/11/20 0006 (!) 120/56 98.2 F (36.8 C) 79 09/10/20 2349 (!) 120/57 92 17 09/10/20 2317 130/72 108 09/10/20 2211 (!) 100/54 63 18 09/10/20 2111 124/85 98.1 F (36.7 C) 85 20 09/10/20 2000 133/62 90 20 09/10/20 1914 130/80 97.9 F (36.6 C) 91 20 09/10/20 1815 98.3 F (36.8 C) 16 09/10/20 1745 (!) 141/67 99 09/10/20 1715 111/60 83 09/10/20 1645 (!) 146/73 85 09/10/20 1615 111/78 98.1 F (36.7 C) 78 16 09/10/20 1545 (!) 108/59 81 09/10/20 1515 127/77 82 09/10/20 1445 133/79 91 09/10/20 1415 124/75 98.1 F (36.7 C) 68 16 09/10/20 1345 (!) 111/59 70 09/10/20 1315 (!) 141/71 71 09/10/20 1245 102/65 83 09/10/20 1215 130/65 98.1 F (36.7 C) 83 16 09/10/20 1200 (!) 99/55 70 09/10/20 1115 (!) 112/57 75 07/18/21 1045 123/73 74 09/10/20 1015 127/62 98.1 F (36.7 C) 68 16 09/10/20 0945 121/80 78 09/10/20 0915 111/74 71 09/10/20 0845 127/79 65 09/10/20 0815 102/62 97.9 F (36.6 C) 64 16 ABDOMEN: normal shape, position and consistency GENITAL/URINARY: External Genitalia: General appearance; normal, Hair distribution; normal, Lesions absent Uterus: Size normal, Contour normal Breast:normal appearance, no masses or tenderness Cor: RRR no Murmurs Pulmonary: clear to auscultation anterior and posterior Extremities: no Clubbing cyanosis or ecchymosis DATA: ASSESSMENT : Active Problems: Encounter for elective induction of labor (normal spontaneous vaginal delivery) Plan: Continue care Tracy DERASM at bedside to attend delivery, Tracy Lerner CNM updated with SVE and patient position. Tracy Lerner CNM updated with SVE, patient pain rating, pitocin rate and contraction pattern. Tracy Lerner CNM updated with patient SVE, pain medication intervention and position change. Juan Lerner CNM updated with patient SVE, pitocin rate, contraction pattern, position change and pain rating. CNM stated okay to increase pitocin to 24milli-unit/hr. Pt in hands and knee on nick bag Juan Lerner CNM in pt's room for sve and arom documented in this encounter [employer] Phone: Evaluation note Note Date & Type Note Facility Evaluation note Diagnosis Encounter for screening examination for impaired glucose regulation and diabetes mellitus 26 weeks gestation of state, incidental documented in this encounter [employer] Phone: Evaluation note Note Date & Type Note Facility Evaluation note Diagnosis 37 weeks gestation of state, incidental documented in this encounter [employer] Phone: Evaluation note Note Date & Type Note Facility Evaluation note Diagnosis Encounter for elective induction of labor (normal spontaneous vaginal delivery) Normal delivery Normal delivery documented in this encounter [employer] Phone: Evaluation note Note Date & Type Note Facility Evaluation note Diagnosis LGSIL on Pap smear of cervix documented in this encounter [employer] Phone: Evaluation note Note Date & Type Note Facility Evaluation note Diagnosis Abnormal vaginal bleeding Other specified noninflammatory disorder of vagina documented in this encounter [employer] Phone: Evaluation note Note Date & Type Note Facility Evaluation note Diagnosis Well woman exam with routine gynecological exam Routine gynecological examination Screening for HPV (human papillomavirus) Special screening examination for human papillomavirus (HPV) Dysplasia of cervix, low grade (BECKY 1) Mild dysplasia of cervix documented in this encounter [employer] Phone: Evaluation note Note Date & Type Note Facility Evaluation note Diagnosis Well woman exam with routine gynecological exam Routine gynecological examination documented in this encounter [facility] Diagnosis Amenorrhea Absence of menstruation Positive urine test Encounter for supervision of normal first in first trimester Supervision of normal first Diagnosis 17 weeks gestation of state, incidental Encounter for supervision of normal first , second trimester Diagnosis 13 weeks gestation of state, incidental Chlamydia contact, treated Contact with or exposure to venereal diseases Advance Directives No Advanced Directives Records FoundDocuments on File Type Date 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 ACP-Advance Directive ACP-Power of Cribbing Setter Latest Code Status on File Code Status Date Activated Date Inactivated Comments Full Code 09/11/2020 1:57 AM Full Code 09/10/2020 5:13 AM 09/11/2020 1:56 AM Latest Code Status on File Code Status Date Activated Date Inactivated Comments Full Code 09/11/2020 1:57 AM 09/12/2020 6:05 PM Latest Code Status on File Code Status Date Activated Date Inactivated Comments Full Code 09/11/2020 1:57 AM 09/12/2020 6:05 PM Code Status History Code Status Date Activated Date Inactivated Comments Full Code 09/10/2020 5:13 AM 09/11/2020 1:56 AM Summary Purpose Family History No Family History Records FoundNo Family History Records Found Additional Source Comments Reason for Visit (unrecogniz ed section and content) Reason Comments Scheduled Induction Status Reason Specialty Diagnoses / Procedures Referre d By Contact Referred To Contact Diagnoses Encounter for elective induction of labor Elly Lerner APRN - [facility] [address] [place] [address] [facility] Scheduled Active and Recently Administ ered Medications (unrecognized section and content) Medication Order 09/10/2020 09/11/2020 09/12/2020 benzocaine-menthol (DERMOPLAST) 20-0.5 % spray Topical, 2 TIMES DAILY, First dose on Fri09/11/20 at 0215, Apply to perineal area. Patient is capable and may self administer at bedside., 021 (Given - Provider: Betzaida Beyer RN)0900 (Due)2100 (Due) 0900 (Due)2100 (Due) ibuprofen (ADVIL;MOTRIN) tablet 800 mg 800 mg, Oral, EVERY 8 HOURS, First dose on Fri09/11/20 at 0215, Do not crush or break., 0203 (Given - Provider: Betzaida Beyer RN)1331 (Given - Provider: Thuy Snyder IBCLC)2141 (Given - Provider: Keyanna Jolly RN) 0618 (Given - Provider: Keyanna Jolly, ARMIDA)1401 (Given - Provider: Nubia Ren, ARMIDA)1815 (Due) measles, mumps & rubella vaccine (MMR) injection 0.5 mL 0.5 mL, Subcutaneous, PRIOR TO DISCHARGE, Starting on Fri09/11/20 at 0156, For 1 dose, sodium chloride flush 0.9 % injection 10 mL 10 mL, Intravenous, EVERY 12 HOURS SCHEDULED (2 times per day), First dose on Fri09/11/20 at 0900, 0900 (Due)2100 (Due) 0900 (Due)2100 (Due) Aermtgh-Ufvobv-Ozewa Pertussis (BOOSTRIX) injection 0.5 mL 0.5 mL, Intramuscular, PRIOR TO DISCHARGE, Starting on Fri09/11/20 at 0156, For 1 dose, If not previously administered during at 27-36 weeks as recommended by CDC., witch nessa-glycerin (TUCKS) pad Topical, 2 TIMES DAILY, First dose on Fri09/11/20 at 0215, Apply to perineal area. Patient is capable and may self administer at bedside., 021 (Given - Provider: Betzaida Beyer RN)0900 (Due)2100 (Due) 09 (Due)2100 (Due) Continuous Medication Order 09/10/2020 09/11/2020 09/12/2020 lactated ringers infusion (CANCELED) Intravenous, at 125 mL/hr, CONTINUOUS, Starting on Fri09/10/20 at 0530, Labor and Delivery 0530 (New Bag - Provider: Neda Willard, ARMIDA)0700 (Rate/Dose Change - Provider: Neda Willard RN)0720 (Rate/Dose Change - Provider: Neda Willard, ARMIDA)1727 (New Bag - Provider: Latonia Bauer RN)1999 (Rate/Dose Change - Provider: Betzaida Beyer RN)213 (New Bag - Provider: Betzaida Beyer RN) oxytocin (PITOCIN) 30 units in 500 mL infusion (CANCELED) 1 tramaine-units/min (1 mL/hr), Intravenous, at 1 mL/hr, CONTINUOUS, Starting on Fri09/10/20 at 0530, Begin infusion at 1 tramaine-unit/min (1 tramaine-unit per min = 1 mL per hour) and increase by 2 tramaine-units/min as needed, every 30 minutes, until labor is achieved. Labor is defined as contractions every 2-3 minutes with cervical changes or [place] units (MVU) greater than 200 in a 10-minute window. Maximum infusion rate: 24 tramaine-unit/min. Contact provider if maximum rate does not achieve desired response. Provider may order alternative titration goal or other clinically appropriate goal of titration rate (s). If staff does not increase pitocin at ordered rate, or if pitocin is turned down or off notify provider., Labor and Delivery 0600 (New Bag - Provider: Neda Willard, RN)0630 (Rate/Dose Change - Provider: Neda Willard, RN)0700 (Rate/Dose Change - Provider: Neda Willard RN)0730 (Rate/Dose Change - Provider: Shyanne Lambert RN)0800 (Rate/Dose Change - Provider: Shyanne Lambert RN)0830 (Rate/Dose Change - Provider: Shyanne Lambert RN)0900 (Rate/Dose Change - Provider: Shyanne Lambert RN)0930 (Rate/Dose Change - Provider: Shyanne Lambert, ARMIDA)1000 (Rate/Dose Change - Provider: Shyanne Lambert RN)1030 (Rate/Dose Change - Provider: Shyanne Lambert, ARMIDA)1100 (Rate/Dose Change - Provider: Shyanne Lambert, ARMIDA)1130 (Rate/Dose Change - Provider: Shyanne Lambert RN)1200 (Rate/Dose Change - Provider: Shyanne Lambert, ARMIDA)1700 (Rate/Dose Change - Provider: Shyanne Lambert, RN)1730 (Rate/Dose Change - Provider: Shyanne Lambert, ARMIDA)1800 (Rate/Dose Change - Provider: Shyanne Lambert, ARMIDA)1830 (Rate/Dose Change - Provider: Shyanne Lambert, ARMIDA)1945 (Rate/Dose Change - Provider: Betzaida Beyer RN)2014 (Rate/Dose Change - Provider: Betzaida Beyer RN)2044 (Rate/Dose Change - Provider: Betzaida Beyer RN) PRN Medication Order 09/10/2020 09/11/2020 09/12/2020 0.9 % sodium chloride infusion 25 mL, Intravenous, at 100 mL/hr, PRN, If patient receiving piggyback infusions without ordered maintenance IV fluids or with frequent/long duration piggyback infusions, Starting on Fri09/11/20 at 0156, Administer at the same rate as the piggyback being infused., acetaminophen (TYLENOL) tablet 650 mg 650 mg, Oral, EVERY 4 HOURS PRN, Fever, Fever >100.5 F (38 C) or pain 1-10, Starting on Fri09/11/20 at 0156, Maximum dose of acetaminophen is 4000 mg from all sources in 24 hours., 164 (Given - Provider: Gwendolyn Knox RN) docusate sodium (COLACE) capsule 100 mg 100 mg, Oral, 2 TIMES DAILY PRN, Constipation, Starting on Fri09/11/20 at 0156, Do not crush or break., lactated ringers infusion 500 mL (CANCELED) 500 mL, Intravenous, at 250 mL/hr, PRN, Intrauterine resuscitation for hypertonus, tachysystole, non-reassuring status, or as prescribed by the physician. Every hour as needed, nurse may repeat bolus., Starting on Fri09/10/20 at 0511, Labor and Delivery 1930 (Rate/Dose Change - Provider: Betzaida Beyer RN - Comment: heart rate variability) lansinoh lanolin ointment Topical, PRN, Dry Skin, nipple discomfort, Starting on Fri09/11/20 at 0156, lidocaine PF 1 % injection 30 mL (CANCELED) 30 mL, Other, PRN, for perineal laceration/episiotomy repair, Starting on Fri09/10/20 at 0511, For 1 dose, Post Delivery 0000 (Given - Provider: Betzaida Beyer RN) nalbuphine (NUBAIN) injection 10 mg (CANCELED) 10 mg, Intravenous, EVERY 2 HOURS PRN, Pain Moderate (4-6), Pain Severe (7-10), For moderate pain 4-6, Starting on Fri09/10/20 at 0511, PRN for pain, Labor and Delivery 2124 (Given - Provider: Betzaida Beyer RN) oxytocin (PITOCIN) 10 unit bolus from the bag 999 mL/hr, Intravenous, at 999 mL/hr, Administer over 20 Minutes, PRN, Bleeding, Starting on 09/10/20 at 0511, For 1 dose, For Post Use Only. Give after delivery of placenta. Bolus for bag to infuse at 999ml/20 minutes. oxytocin (PITOCIN) 30 units in 500 mL infusion (COMPLETED) 166 tramaine-units/min (166 mL/hr), Intravenous, at 166 mL/hr, PRN, Bleeding, Starting on 09/10/20 at 0511, For 1 dose, For Post Use Only. Give after delivery of placenta. Following Bolus from bag administration, reduce the rate to 166 mL/hr and administer remaining bag, Post Delivery 2346 (Rate/Dose Change - Provider: Betzaida Beyer RN - Comment: brandt Lerner CNM at bedside)2350 (Rate/Dose Change - Provider: Betzaida Beyer RN) 0009 (New Bag - Provider: Betzaida Beyer RN)0010 (Rate/Dose Change - Provider: Betzaida Beyer RN) sodium chloride flush 0.9 % injection 10 mL 10 mL, Intravenous, PRN, Line Care, Starting on 09/11/20 at 0156, After every IV line use, INFORMATION SOURCE (unrecogn ized section and content) DATE CREATED AUTHOR 01/04/2021 [facility] [place] DATE CREATED AUTHOR AUTHOR'S ORGANIZ ATION 04/01/2023 [facility] May vuong FOR RECORDS PERTAINING TO PATIENTS WHO ARE OR HAVE BEEN ENROLLED IN A CHEMICAL DEPENDENCY/SUBSTANCEABUSE PROGRAM, SOME INFORMATION MAY BE OMITTED. This clinical summary was aggregated from multiple sources. Caution should be exercised in using it in the provision of clinical care. This summary normalizes information from multiple sources, and as a consequence, information in this document may materially change the coding, format and clinical context of patient data. In addition, data may be omitted in some cases. CLINICAL DECISIONS SHOULD BE BASED ON THE PRIMARY CLINICAL RECORDS. [email or web address] provides no warranty or guarantee of the accuracy or completeness of information in this document.
[2023-06-05 06:24] LABS: Glucometer 94 mg/dL (74-106)
[2023-06-05 06:42] LABS: HCG Qualitative NEGATIVE (NEGATIVE)
[2023-06-05] MEDS: LACTATED RINGER'S SOLUTION 1,000 ML 50 ML IV ×2 (07:10→09:57)
--- NOTE | 2023-06-05 07:47 | FL_ITS ---
[address] [address] Patient Name: IVETTE COREY MRN: [id number] date: 1990 Sex: F Assigned Patient Location: [facility] Current Patient Location: [facility] Accession/Order Number: [id number] Exam Date: 06/05/2023 07:47 Report Date: 06/06/2023 08:12 At the request of: MEENAKSHI PRIEST Procedure: FL fluoroscopy <1hr NON-READ EXAM: FL fluoroscopy <1hr NON-READ HISTORY: TECHNIQUE: FINDINGS: Please see Operative Report. Electronically authenticated by: RADIOLOGIST NO Date: 06/06/2023 08:12
[2023-06-05] MEDS: CEFAZOLIN SODIUM/DEXTROSE,ISO 2 GM/50 ML PIGGYBACK IV (07:56)
[2023-06-05] MEDS: LIDOCAINE HCL 1% 100 MG/10 ML MDV INJ (08:38)
[2023-06-05] MEDS: BUPIVACAINE HCL 0.5% PF 50 MG/10 ML VIAL 20 ML INJ (10:19)
--- NOTE | 2023-06-05 10:26 | XR_ITS ---
The [address] [address] Patient Name: IVETTE COREY MRN: [id number] date: 1990 Sex: F Assigned Patient Location: [facility] Current Patient Location: Accession/Order Number: [id number] Exam Date: 06/05/2023 11:05 Report Date: 06/06/2023 07:14 At the request of: LEON EL Procedure: XR foot RT min 3V PROCEDURE: XR foot RT min 3V HISTORY: Postop x-ray PACU COMPARISON: XR foot bilateral 04/15/2023 FINDINGS: BONES:Mechanical fusion of first metatarsophalangeal joint via dorsal plate and screws. Resection of head of second toe proximal phalanx. SOFT TISSUES:Mild dorsal soft tissue swelling. EFFUSION:None visible. OTHER: Images were obtained through cast material which slightly limits evaluation. XR/XR foot RT min 3V IMPRESSION: 1. Postoperative changes detailed above. Electronically authenticated by: CALLUM MARQUEZ Date: 06/06/2023 07:14
[2023-06-05 10:57] LABS: Glucometer 147 mg/dL (74-106)
--- NOTE | 2023-06-05 11:20 | PC.NURSE ---
Right extremity elevated above heart level and ice placed behind knee
--- NOTE | 2023-06-05 13:17 | P.ORON_ITS ---
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 First metatarsal phalangeal joint fusion 2. 2nd hammertoe correction with PIPJ arthroplasty 3. correction of 2nd metatarsal phalangeal joint contracture with capsulotomy and extensor tendon lengthening *All procedures were performed on the RIGHT foot INDICATION FOR PROCEDURE: patient is a 32-year-old healthy female who has had worsening pain and dysfunction associated with primarily her right great toe. Over the last year she has had difficulty with finding comfortable shoes and pain did not respond to shoe modification, activity modification. She does wear steel toe boots at work which exacerbates her pain significantly. Due to her worsening pain she wished to undergo surgical correction. In discussion with her she also had symptoms regarding her 2nd toe contracture. I recommended the above procedures and discussed the potential risks and benefits of surgical versus nonsurgical treatment. INTRAOPERATIVE FINDINGS: Great toe is in a valgus position which abutted the 2nd toe. Range of motion of the 1st MPJ was track bound. Bone quality is within normal limits given patient's age and gender. Reducible contracture of the 2nd toe at the PIPJ. Once the PIPJ deformity was corrected there is residual deformity and contracture of the 2nd metatarsal phalangeal joint. combination of capsulotomy and extensor tendon lengthening corrected all residual malalignment in the 2nd metatarsophalangeal joint. plantar plate was intact PROCEDURE IN DETAIL: Patient was identified in pre op and consent was reviewed. Correct side and site were identified and marked. Pre-op antibiotics were started. Patient was brought to OR suite and place on table in a supine position. General anesthesia was administered. A tourniquet was applied. Operative extremity was prepped and draped in usual sterile fashion. Formal time-out was performed and the foot/ankle were exsanguinated and tourniquet inflated. Incision created over dorsal aspect of the 1st MPJ. Bleeders coagulated. EHL protected throughout the procedure. Capsulotomy performed and McGlammry elevator inserted into 1st MPJ. Guide Pin place in 1st metatarsal head. Conical reamers used on 1st metatarsal head to remove cartilage and subchondral bone. Guide pin removed. Conical reamers used on proximal phalanx in a similar manner. 2.0 mm drill used to on each side of the joint. The site was irrigated. 1cc of bone allograft graft was then packed into the fusion site. A stab incision was placed on the medial aspect of the hallux and blunt dissection down to the proximal phalanx base was performed. A guide wire was then used to pin the MPJ in a rectus position under fluoroscopic guidance. Position was checked both on the table and under fluoroscopy. A saw was used to contour the dorsal aspect of the 1st metatarsal and proximal phalanx to accommodate plate fixation. and additional guidewire was placed from the lateral proximal phalanx base across the 1st metatarsophalangeal joint and crossing the 1st guidewire. A 3.[address] over the fusion site and temporarily fixed. Then ems helicopter pilot holes were drilled for locking 3.5 mm screws which were measured and placed according to the manufactor's standard directions. Again position was checked under fluoroscopy as well as on the table. Temporary fixation was removed and additional screws were placed. A 4.0 mm cannulated headed screw was inserted over the first wire placed previously (from medial proximal phalanx to the lateral first metatarsal. then a 3.0 mm cannulated screw was placed over the 2nd wire. Both cannulated screws were placed accordingly with countersinking and drilling as recommended by the sr. logistics analyst. Again position of the great toe and hardware placement were checked on the table and under fluoroscopy. The surgical site was irrigated with copious amounts of sterile saline. The incision was then closed in layers. With attention to the 2nd digit a dorsal linear incision was created over the PIPJ. Sharp and blunt dissection down to the extensor tendon was performed. The tendon was incised transversely then reflected proximally. A sagittal saw was used to remove the proximal phalanx head. The site was flushed with sterile saline. there was correction of the deformity at the PIPJ however there was r esidual deformity and contracture of the metatarsophalangeal joint. The incision was then extended proximally to the 2nd metatarsal head and a combination sharp and blunt dissection gained access to the capsule of the metatarsophalangeal joint which was released sharply with a scalpel and then with a McGlamry elevator. All residual deformity was now corrected however within the extensor tendon was reapproximated and resulted in dorsiflexion at the metatarsophalangeal joint therefore decision was made to perform extensor tendon lengthening. The proximal stump of the tendon was transected longitudinally allowing the medial slip of the tendon to be reflected distally which was then reapproximated to the distal stump at the level of the PIPJ. The tendon was repaired with absorbable suture. surgical site was irrigated with copious saline and the incision was closed in layers. The tourniquet was deflated and a prompt hyperemic response was noted. A dry sterile dressing consisting of Xeroform on the incisions followed by 4 x 4 gauze, ABDs, and Kerlix were applied. Multiple layers of cast padding were then applied to ensure all bony prominences were well-padded. A plaster posterior splint was then applied which was held in place by Santi wraps. Capillary refill time to all digits was evaluated and had appropriate response. POSTOPERATIVE PLAN: Discharge home under family's care Post op instructions provided verbally and written prescription(s) were placed in chart NWB operative foot/ankle x1 wk Follow-up in 1 week Implants: Vilex plate/screws 1cc Isto Sparc allograft Anesthesia: General-LMA Surgeon: Hernando Bland Tab Machine Operator: Andrew Amador Estimated blood loss (mL): 10 Condition: stable Disposition: PACU
== END 2023-06-05 12:18 | disposition home or self-care (01) ==
PROVIDERS: Visit Provider Podiatrist Foot & Ankle Surgery
PROC: (CPT 1470; principal; 2023-06-05 08:00)
DX: M20.11 Hallux valgus (acquired), right foot (principal); M20.41 Other hammer toe(s) (acquired), right foot; M24.574 Contracture, right foot; Z87.01 Personal history of pneumonia (recurrent); Z87.891 Personal history of nicotine dependence
CPT/HCPCS: 28234; 28285; 28750; 36415; 73630; 76000; 82948; 84703; C1713; J1094; J1170; J2704

== ENCOUNTER 2023-06-26 10:37 | Outpatient (OUT) | payer OTHER, SELFPAY ==
--- NOTE | 2023-06-26 | XR_ITS ---
The [address] [address] Patient Name: IVETTE COREY MRN: [id number] date: 1990 Sex: F Assigned Patient Location: Current Patient Location: Accession/Order Number: [id number] Exam Date: 06/26/2023 10:37 Report Date: 06/26/2023 13:02 At the request of: MEENAKSHI PRIEST Procedure: XR foot RT min 3V PROCEDURE: XR foot RT min 3V COMPARISON: HISTORY: RIGHT FOOT PAIN FINDINGS: BONES:Stable fusion first metatarsal-phalangeal joint with a dorsal plate and multiple screws. No acute fracture or dislocation of mechanical failure. Remote resection head of the second proximal phalanx. SOFT TISSUES:Dorsal forefoot soft tissue swelling EFFUSION:None visible. OTHER: Negative. XR/XR foot RT min 3V IMPRESSION: Stable postsurgical changes with no mechanical failure Electronically authenticated by: AI VERA Date: 06/26/2023 13:02
--- OUTSIDE RECORDS SUMMARY | 2023-06-26 10:45 | XMS_ITS | CCD ---
Author Organization [facility] Care Team Providers Care Tray Filler Name Role Phone Unavailable Primary Care Provider [...] stain.thin prep Doc (Cvx/Vag) (NOTE) Path Number: [id number] DIAGNOSIS Imaged ThinPrep Pap - Cervical (1 monolayer slide): Specimen Adequacy: Satisfactory for evaluation. -Endocervical/trans formation zone component is absent. Descriptive Diagnosis: Negative for intraepithelial lesion or malignancy. Cytotech Screener: EY Electronically Signed Out Ronak MELENDEZ(ASCP) /04/01/2023 Source of Specimen: A: Imaged ThinPrep Pap - Cervical (1 monolayer slide) HPV Reflex?............ ..........HPV if Abnormal Clinical History Contraceptive use Z01.419 Routine museum tour guide exam without abnormal findings Processing Lab: [address] [id number] Interpretation performed at [address] [address] This Pap Test has been evaluated with [...] CYTOLOGY REPORT Patient Name: IVETTE COREY [facility] Rec: [id number] [facility] [facility] ANATOMIC PATHOLOGY [address] [place] [address]. [place], [place] [address] Normal [facility] CBC With Auto Differentialon 01-11-2021 Absolute Eos # 0.07 [facility] Absolute Immature Granulocyte <0.03 [facility] Absolute Lymph # 2.01 [facility] alth Absolute [place] # 0.45 [facility] lt Basophils (Bld) [#/Vol] 0.03 10*3/uL [facility] Basophils/100 WBC (Bld) 1 % 0 - 2 % [facility] Differential Type NOT REPORTED [facility] Eosinophils/100 WBC (Bld) 1 % 1 - 4 % [facility] Hematocrit (Bld) [Volume fraction] 40.3 % 36.3 - 47.1 % [facility] Hemoglobin.gastrointesti nal spec 1 Ql (Stl) 13.2 g/dL 11.9 - 15.1 g/dL [facility] Immature granulocytes/100 WBC (Bld) 0 % 0 [facility] Lymphocytes/100 WBC (Bld) 39 % 24 - 43 % [facility] MCH (RBC) [Entitic mass] 30.9 pg 25.2 - 33.5 pg [facility] MCHC (RBC) [Mass/Vol] 32.8 g/dL 28.4 - 34.8 g/dL [facility] MCV (RBC) [Entitic vol] 94.4 fL 82.6 - 102.9 fL [facility] Monocytes/100 WBC (Bld) 9 % 3 - 12 % [facility] NRBC Automated 0.0 0.0 per 100 WBC [facility] Platelet distribution width (Bld) [Ratio] 11.8 % 11.8 - 14.4 % [facility] Platelet Estimate NOT REPORTED [facility] Platelet mean volume (Bld) [Entitic vol] 9.5 fL 8.1 - 13.5 fL [facility] Platelets (Bld) [#/Vol] 239 10*3/uL [facility] RBC (Bld) [#/Vol] 4.27 10*6/uL 3.95 - 5.1 1 m/uL [facility] RBC (Bld) [#/Vol] NOT REPORTED [facility] Segmented neutrophils/100 WBC (Bld) 50 % 36 - 65 % [facility] Absolute 2.61 [employer] h WBC (Bld) [#/Vol] 5.2 10*3/uL [facility] WBC (Bld) [#/Vol] NOT REPORTED [facility] hCG, Quantitative, on 01-11-2021 hCG Quant <1 <5 IU/L [facility] Comment on above: Non-preg premeno <=5 Postmeno <=8 Male <=3 If HCG results do not concur with clinical observations, additional testing to confirm results is recommended. Elevated results not associated with may be found in patients with other diseases such as tumors of the germ cells (testis, ovaries, etc.), bladder, pancreas, stomach, lungs, and liver. [facility] CBC auto differentialOrdered By: Elly Lerner on 09-10-2020 Absolute Eos # 0.07 [employer] Work Phone: Absolute Immature Granulocyte 0.12 [facility] Work Phone: Absolute Lymph # 2.16 [employer] Work Phone: Absolute [place] # 0.75 [employer] Work Phone: Basophils (Bld) [#/Vol] 0.03 10*3/uL [facility] Work Phone: Basophils/100 WBC (Bld) 0 % 0 - 2 % [facility] Work Phone: Differential Type NOT REPORTED [facility] Work Phone: Eosinophils/100 WBC (Bld) 1 % 1 - 4 % [facility] Work Phone: Hematocrit (Bld) [Volume fraction] 39.0 % 36.3 - 47.1 % [facility] Work Phone: Hemoglobin.gastrointesti nal spec 1 Ql (Stl) 13.3 g/dL 11.9 - 15.1 g/dL [facility] Work Phone: Immature granulocytes/100 WBC (Bld) 1 % High 0 [facility] Work Phone: Interpretation and review of laboratory results Abnormal [employer] Phone: Lymphocytes/100 WBC (Bld) 23 % Low 24 - 43 % [employer] Phone: MCH (RBC) [Entitic mass] 33.4 pg 25.2 - 33.5 pg [employer] Phone: MCHC (RBC) [Mass/Vol] 34.1 g/dL 28.4 - 34.8 g/dL [employer] Phone: MCV (RBC) [Entitic vol] 98.0 fL 82.6 - 102.9 fL [employer] Phone: Monocytes/100 WBC (Bld) 8 % 3 - 12 % [facility] Phone: NRBC Automated 0.0 0.0 per 100 WBC [employer] Phone: Platelet distribution width (Bld) [Ratio] 12.5 % 11.8 - 14.4 % [employer] Phone: Platelet Estimate NOT REPORTED [employer] Phone: Platelet mean volume (Bld) [Entitic vol] 9.4 fL 8.1 - 13.5 fL [employer] Phone: Platelets (Bld) [#/Vol] 157 10*3/uL [employer] Phone: RBC (Bld) [#/Vol] 3.98 10*6/uL 3.95 - 5.1 1 m/uL [employer] Phone: RBC (Bld) [#/Vol] NOT REPORTED [facility] Phone: Segmented neutrophils/100 WBC (Bld) 67 % High 36 - 65 % [employer] Phone: Segs Absolute 6.09 [employer] Work Phone: WBC (Bld) [#/Vol] 9.2 10*3/uL [...] [facility] Work Phone: Methamphetamine, Urine Negative NEGATIVE [facility] Work Phone: Opiates, Urine Negative NEGATIVE [facility] Work Phone: Oxycodone Screen, Ur Negative NEGATIVE [facility] Work Phone: Phencyclidine, Urine Negative NEGATIVE [facility] Work Phone: Propoxyphene, Urine Negative NEGATIVE [facility] Work Phone: Test Information NOT REPORTED [facility] Work Phone: Tricyclic Antidepressants, Urine Negative NEGATIVE [facility] Work Phone: Comment on above: Drug screen [...] Haseeb Montero MD 07/05/20 Final result Normal [facility] Glucose tolerance, 1 hourOrd ered By: Elly Lerner on 06-19-2020 GLU ADMN Glucola [employer] Phone: Glucose tolerance screen 50g 104 mg/dL 70 - 135 mg/dL [employer] Phone: HemoglobinOrdered By: Roxann Lerner on 06-19-2020 Hemoglobin.gastrointesti nal spec 1 Ql (Stl) 11.8 g/dL Low 11.9 - 15.1 g/dL [employer] Phone: Interpretation and review of laboratory results Abnormal [employer] Phone: US OB 14 PLUS WEEKS SINGLE O R FIRST GESTATIONon 04-26-2020 OB 14 PLUS WEEKS SINGLE OR FIRST GESTATION 20.0WK IUP CL: 4.3 cm HR: 155 bpm Posterior placenta, breech presentation Ovaries: Adnexa WNL Gender: male Active movements All visualized anatomy WNL Interpreted by: CARLEY Campos CNM, MD Signed by: Haseeb Montero MD 04/26/20 Final result Normal [facility] HIV Screenon 02-08-2020 HIV Ag/Ab NONREACTIVE NONREACTIVE [place] Comment on above: No laboratory eviden ce of HIV infection. If acute HIV infection is suspected, consider testing for HIV-1 RNA. TYPE AND SCREENon 1 04-10-2019 ABO/Rh Positive [place], [place] Urine Drug Screen, Comprehen siveon 02-08-2020 Amphetamine Screen, Ur Negative NEGATIVE [place] Barbiturate Screen, Ur Negative NEGATIVE [facility] [place] [place] Benzodiazepine Screen, Urine Negative NEGATIVE [facility] [place] Buprenorphine Urine Negative NEGATIVE [facility] [place] Cannabinoid Scrn, Ur Negative NEGATIVE [facility] [place] Cocaine Metabolite, Urine Negative NEGATIVE [facility] [place] MDMA, Urine NOT REPORTED NEGATIVE [facility] [place] Methadone Screen, Urine Negative NEGATIVE [facility] [place] Methamphetamine, Urine Negative NEGATIVE [facility] [place] Opiates, Urine Negative NEGATIVE [facility] [place] Oxycodone Screen, Ur Negative NEGATIVE [facility] [place] Phencyclidine, Urine Negative NEGATIVE [facility] [place] Propoxyphene, Urine Negative NEGATIVE [facility] [place] Test Information NOT REPORTED [facility]- [place] Tricyclic Antidepressants, Urine Negative NEGATIVE [facility] [place] Comment on above: Drug screen results are to be used for medical purposes only. All positive results are unconfirmed. Testing for employment or legal uses should be sent to a reference laboratory for confirmation. Vital Signs Date Time Vital Sign Value Performing Clinician Kika peck 09-12-2020 13:51-0400 Body temperature 97.9 [degF] [employer] Work Phone: [employer] Phone: 09-12-2020 13:51-0400 Diastolic blood pressure 77 mm[Hg] [employer] Work Phone: [employer] Phone: 09-12-2020 13:51-0400 Heart rate 103 /min [employer] Work Phone: [employer] Phone: 09-12-2020 13:51-0400 Respiratory rate 18 /min [employer] Work Phone: [employer] Phone: 09-12-2020 13:51-0400 Systolic blood pressure 129 mm[Hg] [employer] Work Phone: [employer] Phone: Encounters Encounter Date Encounter Type Care Provider Facility Start: 03-12-2023 End: 03-13-2023 ambulatory ELLY Shah [facility] Start: 03-12-2023 Encounter for gynecological examination (general) (routine) without abnormal findings ELLYADY LERNER [facility] Start: 03-12-2023 End: 03-12-2023 Patient encounter procedure None None [facility] Start: 03-12-2023 End: 03-12-2023 Subsequent hospital visit by physician None None [facility] Laboratory Comment on above: Well woman exam with routine gynecological exam Start: 03-06-2022 End: 03-06-2022 Patient encounter procedure None None [facility] Start: 03-06-2022 End: 03-06-2022 Subsequent hospital visit by physician None None [facility] Laboratory Comment on above: Well woman exam with routine gynecological exam; Screening for HPV (human papillomavirus); Dysplasia of cervix, low grade (BECKY 1) Start: 01-11-2021 End: 01-11-2021 Subsequent [facility] Comment on above: Abnormal vaginal ble eding Start: 01-03-2021 End: 01-03-2021 Subsequent [facility] Comment on above: 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 Start: 09-10-2020 End: 09-12-2020 Evaluation and management of inpatient Elly Lerner MACHINE ASSEMBLER SUPERVISOR - CNM Work Phone: [facility] Start: 08-24-2020 End: 08-24-2020 Subsequent [facility] Comment on above: 37 weeks gestation o f Start: 06-19-2020 End: 06-19-2020 Subsequent [facility] visit [facility] Comment on above: Encounter for screen ing examination for impaired glucose regulation and diabetes mellitus; 26 weeks gestation of Start: 04-06-2020 End: 04-06-2020 Subsequent [facility] visit [facility] Comment on above: 17 weeks gestation o f ; Encounter for supervision of normal first , second trimester Start: 03-09-2020 End: 03-09-2020 Subsequent [facility] Comment on above: 13 weeks [...] Gonadotropin chorion ic quantitative Elly E Pool MACHINE ASSEMBLER SUPERVISOR - CNM Work Phone: Start: 09-10-2020 Blood count complete auto&auto difrntl wbc Elly E Pool MACHINE ASSEMBLER SUPERVISOR - CNM Work Phone: Start: 09-10-2020 Drug screen class list a Elly E Pool MACHINE ASSEMBLER SUPERVISOR - CNM Work Phone: Start: 06-19-2020 Blood count hemoglobin Elly E Pool MACHINE ASSEMBLER SUPERVISOR - CNM Work Phone: Start: 03-09-2020 Microscopic [...] DTaP/Tdap/Td vaccine (8 - Td or Tdap) [facility] Start: 03-06-2027 Screening for malign ant neoplasm of cervix [facility] Start: 03-09-2025 Screening for malign ant neoplasm of cervix [facility] Start: 03-06-2025 Screening for malign ant neoplasm of cervix Pap smear [facility] Start: 03-15-2024 End: 03-15-2024 Patient encounter procedure 03/15/2024 1:00 PM EST Office Visit [facility] Part of [facility] [address] [place] [address] Elly Lerner APRN - CNM [address] [place] [address] yearly [facility] OBSTET[facility] & [facility]YNECOLOG[facility] Comment on above: yearly Start: 03-12-2024 Depression Screen Depression Screen [facility] Start: 03-12-2023 End: 03-12-2023 Patient encounter procedure 03/12/2023 Office Visit Obstetrics and Gynecology Elly Lerner APRN - CNM [address] [facility] [place] [address] [facility] OBSTETRICS GYNECOLOGY [facility] Start: 03-09-2023 Screening for malign ant neoplasm of cervix [facility] Start: 09-24-2022 Influenza vaccination Flu vaccine (# 1) [facility] Start: 01-03-2022 End: 01-03-2022 Patient encounter procedure 01/03/2022 Office Visit Obstetrics and Gynecology Elly Lerner APRN - CNM [address] [place] [address] [facility] OBSTETRICS GYNECOLOGY Start: 09-24-2021 Influenza vaccination Flu vaccine (# 1) [facility] Start: 01-15-2021 End: 01-15-2021 Patient encounter procedure 01/15/2021 Appointment Radiology [facility] Ultrasound Start: 10-25-2020 Influenza vaccination [facility] Start: 10-24-2020 End: 10-24-2020 ambulatory 10/24/2020 Visit Obstetrics and Gynecology Elly Lerner APRN - CNM [address] [place] [address] [facility] OBSTETRICS [facility] GYNECOLOGY Start: 09-26-2020 End: 09-26-2020 Telemedicine consultation with patient 09/26/2020 Telemedicine Obstetrics and Gynecology Elly Lerner APRN - CNTfifani [address] [place] [address] [phone] [facility] OBSTETR[facility]YNECOLOGY Start: 09-11-2020 End: 09-11-2020 Patient encounter procedure 09/11/2020 Routine Obstetrics and Gynecology Winifred Torres, CARLEY - CNTiffani [address] [place] [address] [phone] [facility]OLOG[facility] Start: 09-07-2020 End: 09-07-2020 Patient encounter procedure 09/07/2020 Routine Obstetrics and Gynecology Elly Lerner APRN - CNM [address] [place] [address] [phone] [facility]ST[facility]YNECOLOG[facility] Start: 08-30-2020 End: 08-30-2020 Patient encounter procedure 08/30/2020 Routine Obstetrics and Gynecology Elly Lerner APRN - SHUKRI [address] [place] [address] [phone] [facility]ST[facility]YNECOLOG[facility] Start: 07-05-2020 End: 07-05-2020 Ancillary Procedure [facility] Start: 06-20-2020 End: 06-20-2020 Patient encounter procedure 06/20/2020 Routine Obstetrics and Gynecology Elly Lerner APRN - SHUKRI [address] [place] [address] [phone] [facility]YNECOLOG[facility] Start: 04-26-2020 End: 04-26-2020 Ancillary Procedure [facility] Start: 04-20-2020 End: 04-20-2020 Office Visit 04/20/2020 Office Visit Obstetrics and Gynecology Elly Lerner APRN - CNTiffani [address] [place] [address] [phone] [facility]ST[facility]ECOLOG[facility] Start: 04-08-2020 Screening for malign ant neoplasm of cervix Cervical cancer screen [place], [place] Start: 04-06-2020 End: 04-06-2020 Routine 04/06/2020 Routine Obstetrics and Gynecology Elly Lerner APRN - SHUKRI [address] [place] [address] [phone] [facility]ST[facility]ECOLOG[facility] Start: 02-16-2020 End: 02-16-2020 Ancillary Procedure 02/16/2020 Ancillary Procedure Obstetrics and Gynecology Elly Lerner APRN - SHUKRI [address] [place] [address] [phone] [facility]OLOG[facility] Start: 10-26-2019 Influenza vaccination Flu vaccine (# 1) [place] Start: 2009 DTaP/Tdap/Td vaccine (1 - Tdap) DTaP/Tdap/Td vaccine (1 - Tdap) [place] Start: 2006 COVID-19 Vaccine (1) COVID-19 Vaccin e (1) [facility] Work Phone: Start: 2002 COVID-19 Vaccine (1) COVID-19 Vaccin e (1) [facility] Start: 2002 Depression Screen Depression Screen [facility] Start: 06-19-1995 COVID-19 Vaccine (1) COVID-19 Vaccin e (1) [facility] Start: 02-18-1995 Varicella vaccine (2 of 2 - 2-dose childhood series) Varicella vaccine (2 of 2 - 2-dose childhood series) [facility] Start: 06-19-1991 Varicella vaccine (1 of 2 - 2-dose childhood series) Varicella vaccine (1 of 2 - 2-dose childhood series) [place] Start: 1990 COVID-19 Vaccine (#1) COVID-19 Vacci ne (#1) [facility] End: 04-06-2020 Alpha Fetoprotein, Maternal Alpha Fetoprotein, Maternal Lab Routine 17 weeks gestation of Encounter for supervision of normal first , second trimester 1 Occurrences starting 04/06/2020 until 04/06/2020 [employer] Phone: Comment on above: 1 Occurrences starti ng 04/06/2020 until 04/06/2020 Alpha Fetoprotein, Maternal Alpha Fetoprotein, Maternal Lab Routine 17 weeks gestation of Encounter for supervision of normal first , second trimester 04/06/2020 10:09 AM [employer] Phone: End: 03-09-2020 C.trachomatis N.gonorrhoeae DNA, Thin Prep C.trachomatis N.gonorrhoeae DNA, Thin Prep Microbiology Routine 13 weeks gestation of Chlamydia contact, treated 1 Occurrences starting 03/09/2020 until 03/09/2020 [place] Comment on above: 1 Occurrences starti ng 03/09/2020 until 03/09/2020 C.trachomatis N.gonorrhoeae DNA, Thin Prep C.trachomatis N.gonorrhoeae DNA, Thin Prep Microbiology Routine 13 weeks gestation of Chlamydia contact, treated 03/09/2020 11:41 AM [facility] [place] End: 02-08-2020 C.trachomatis N.gonorrhoeae DNA, Urine C.trachomatis N.gonorrhoeae DNA, Urine Microbiology Routine Amenorrhea Positive urine test Encounter for supervision of normal first in first trimester 1 Occurrences starting 02/08/2020 until 02/08/2020 [place] Comment on above: 1 Occurrences starti ng 02/08/2020 until 02/08/2020 C.trachomatis N.gonorrhoeae DNA, Urine C.trachomatis N.gonorrhoeae DNA, Urine Microbiology Routine Amenorrhea Positive urine test Encounter for supervision of normal first in first trimester 02/08/2020 9:00 AM [facility] [place] End: 08-24-2020 Culture, Strep B Screen, Vaginal/Rectal Culture, Strep B Screen, Vaginal/Rectal Microbiology Routine 37 weeks gestation of 1 Occurrences starting 08/24/2020 until 08/24/2020 [employer] Phone: Comment on above: 1 Occurrences starti ng 08/24/2020 until 08/24/2020 Culture, Strep B Scr een, Vaginal/Rectal Culture, Strep B Screen, Vaginal/Rectal Microbiology Routine 37 weeks gestation of 08/24/2020 11:53 AM [facility] [employer] Phone: End: 02-08-2020 Culture, Urine Culture, Urine Microbiology Routine Amenorrhea Positive urine test Encounter for supervision of normal first in first trimester 1 Occurrences starting 02/08/2020 until 02/08/2020 [facility] [place] Comment on above: 1 Occurrences starti ng 02/08/2020 until 02/08/2020 Culture, Urine Culture, Urine Microbiology Routine Amenorrhea Positive urine test Encounter for supervision of normal first in first trimester 02/08/2020 9:00 AM [facility] [place] End: 03-09-2020 Cytopathology procedure, preparation of smear, genital source PAP SMEAR Lab Routine 13 weeks gestation of 1 Occurrences starting 03/09/2020 until 03/09/2020 [facility] [place] Comment on above: 1 Occurrences starti ng 03/09/2020 until 03/09/2020 End: 03-06-2022 Cytopathology procedure, preparation of smear, genital source PAP SMEAR Lab Routine Well woman exam with routine gynecological exam Screening for HPV (human papillomavirus) Dysplasia of cervix, low grade (BECKY 1) 1 Occurrences starting 03/06/2022 until 03/06/2022 [employer] Phone: Comment on above: 1 Occurrences starti ng 03/06/2022 until 03/06/2022 End: 03-12-2023 Cytopathology procedure, preparation of smear, genital source PAP SMEAR Lab Routine Well woman exam with routine gynecological exam 1 Occurrences starting 03/12/2023 until 03/12/2023 [facility] [employer] Comment on above: 1 Occurrences starti ng 03/12/2023 until 03/12/2023 End: 02-08-2020 Hepatitis C Antibody Hepatitis C Antibody Lab Routine Amenorrhea Positive urine test Encounter for supervision of normal first in first trimester 1 Occurrences starting 02/08/2020 until 02/08/2020 [facility] [place] Comment on above: 1 Occurrences starti ng 02/08/2020 until 02/08/2020 Hepatitis C Antibody Hepatitis C Antibody Lab Routine Amenorrhea Positive urine test Encounter for supervision of normal first in first trimester 02/08/2020 9:56 AM EST [place] PROFILE I PROF ILE I Lab Routine Amenorrhea Positive urine test Encounter for supervision of normal first in first trimester 02/08/2020 9:55 AM [facility] End: 01-03-2021 Surgical Pathology Surgical Pathology Lab Routine LGSIL on Pap smear of cervix 1 Occurrences starting 01/03/2021 until 01/03/2021 [employer] Work Phone: Comment on above: 1 Occurrences starti ng 01/03/2021 until 01/03/2021 Immunizations Immunization Date Immunization Notes Care Provider Fa cility 09-11-2020 diphtheria, tetanus toxoids and acellular pertussis vaccine, unspecified formulation [facility] MACHINE ASSEMBLER SUPERVISOR - CNM Work Phone: [employer] Work Phone: 09-11-2020 measles, mumps and rubella virus vaccine Elly [employer] MACHINE ASSEMBLER SUPERVISOR - CNM Work Phone: [employer] Work Phone: 07-05-2020 tetanus toxoid, redu valery diphtheria toxoid, and acellular pertussis vaccine, adsorbed [facility] Payers Date Payer Category Payer Unknown PENDING SALE TO [employer] [id number] 2021-2021 [address] [address] [place] [address] [id number] 2019 Unknown [id number] 2019 Unknown [id number] 2017 Unknown BCBS BC[place] - [place] P PO [id number] 2017-Present [address] [place] [address] [id number] 1990 Unknown [id number] Social History Date Type Detail Facility Start: 02-08-2020 End: 03-06-2022 Tobacco smoking status NHIS Former smoker [place] History of tobacco use Cigarette Smoker [place] Start: 02-08-2020 End: 03-06-2022 Tobacco use and exposure Never used [place] Start: 02-08-2020 End: 01-03-2021 Alcohol intake Ex-drinker (finding) [facility] Start: 03-28-2016 Alcohol Comment Social [place], [place] Start: 12-22-2019 [place], [place] Start: 1990 Sex Assigned At Not on file [place] Exposure to SARS-CoV -2 (event) Not sure [place] History of tobacco use Current smoker [facility] Work Phone: Start: 03-06-2022 End: 03-12-2023 Alcohol intake Current drinker of alcohol (finding) [facility] [employer] Phone: Start: 1990 Sex Assigned At Female [facility] Start: 03-12-2023 History of Social function [facility] Start: 03-12-2023 Tobacco use panel [facility] Patient Health Questionnaire 9 item (PHQ-9) total score [Reported] [address] [facility] Start: 04-26-2021 Gender identity Identifies as female gender (finding) [facility] Hospital Discharge instructions 09-12-2020 Instructions Note Date & Type Note Facility 09-12-2020 Hospital Discharg e instructions Nubia Ren RN - 09/12/2020 Follow-up with your OB doctor as specified. [facility] OB Department phone: Dr. Kylah DERAS Dr. Laureen DERAS [address] [facility] [address] [place] [address] Laureen Sylvester CN [address] [place] [facility] [id number] [phone] Leeann Sharif, MSN, MACHINE ASSEMBLER SUPERVISOR, CNM [facility] [address] [facility] [address] [address] [facility] [id number] Winifred Hays CNM [address] [place] [address] [place] [address] Angi Terrell CNM [address] [place] [address] [place] [address] [phone] DIET Eat a well balanced diet focusing on foods high in fiber and protein. Drink plenty of fluids especially water. To avoid constipation you may take a mild stool softener as recommended by your doctor or hydrology technician. ACTIVITY Gradually increase your activity. Resume exercise regimen only after advice by your doctor or hydrology technician. Avoid lifting anything heavier than a gallon of milk for SIX weeks. Avoid driving until your doctor or hydrology technician has given their approval. Rise slowly from [...] have thoughts of harming yourself or your . If will not stop crying, contact another adult for help or place infant in their crib on their back and [...] medications as recommended by your doctor or hydrology technician for pain If you develop a warm, red, tender area on your breast or develop a fever contact your OB provider. For moms: If you become engorged, feeding may be more difficult or painful for 1-2 days. You may find it helpful to hand express some milk so that the infant can latch on more easily. While , continue to take your vitamins as directed by your doctor or hydrology technician. Refer to the booklet in the folder/binder for more information. If you feel you need more assistance or have questions, please call Thuy Snyder IBCLC, revenue cycle consultant, at or the OB department to [...] they become loose or soiled. If used, Jl should be removed by your care provider. [...] in your calf. documented in this encounter [employer] Phone: Hospital course Narrative 09-12-2020 Winifred Torres [...] NONREACTIVE Final HIV: No results found for: [id number] Results for orders placed or performed during [...] # 2.16 1.10 - 3.70 k/uL Absolute [place] # 0.75 0.10 - 1.20 k/uL Absolute [...] 6 weeks visits documented in this encounter [employer]: History of Present illness Narrative 09-12-2020 Winifred Torres, MACHINE ASSEMBLER SUPERVISOR [facility] - 09/12/2020 8:37 AM Elly Hussein MACHINE ASSEMBLER SUPERVISOR [facility] - 09/11/2020 7:58 AM Betzaida Cabrera [...] sve and arom documented in this encounter [employer]: Evaluation note Note Date & Type Note Facility Evaluation note Diagnosis Encounter for screening examination for impaired glucose regulation and diabetes mellitus 26 weeks gestation of state, incidental documented in this encounter [employer] Phone: Evaluation note Note Date & Type Note Facility Evaluation note Diagnosis 37 weeks gestation of state, incidental documented in this encounter [employer] Phone: Evaluation note Note Date & Type Note Facility Evaluation note Diagnosis Encounter for elective induction of labor (normal spontaneous vaginal delivery) Normal delivery Normal delivery documented in this encounter [employer]: Evaluation note Note Date & Type Note Facility Evaluation note Diagnosis LGSIL on Pap smear of cervix documented in this encounter [employer]: Evaluation note Note Date & Type Note Facility Evaluation note Diagnosis Abnormal vaginal bleeding Other specified noninflammatory disorder of vagina documented in this encounter [employer]: Evaluation note Note Date & Type Note Facility Evaluation note Diagnosis Well woman exam with routine gynecological exam Routine gynecological examination Screening for HPV (human papillomavirus) Special screening examination for human papillomavirus (HPV) Dysplasia of cervix, low grade (BECKY 1) Mild dysplasia of cervix documented in this encounter [employer] Phone: Evaluation note Note Date & Type Note Facility Evaluation note Diagnosis Well woman exam with routine gynecological exam Routine gynecological examination documented in this encounter [email or web address] Diagnosis Amenorrhea Absence of menstruation Positive urine [...] FoundDocuments on File Type Date Recorded Patient Acquisition Cost Estimator Expl anation ACP-Advance Directive ACP-Power of Medical Chemist Latest Code Status on File Code Status [...] labor Elly Lerner APRN - SHUK[facility] [address] [place] [address] [facility] Scheduled Active and Recently Administ ered [...] 0900, 0900 (Due)2100 (Due) 0900 (Due)2100 (Due) Qyiexlm-Jjtbob-Hlpdy Pertussis (BOOSTRIX) injection 0.5 mL 0.5 mL, [...] and Delivery 0530 (New Bag - Provider: Ndea Willard, ARMIDA)0700 (Rate/Dose Change - Provider: Neda [...] every 2-3 minutes with cervical changes or Metz units (MVU) greater than 200 in a [...] section and content) DATE CREATED AUTHOR 01/04/2021 [facility] DATE CREATED AUTHOR AUTHOR'S ORGANIZ ATION 04/01/2023 [facility] May vuong FOR RECORDS PERTAINING TO PATIENTS [...] BE BASED ON THE PRIMARY CLINICAL RECORDS. [employer] provides no warranty or guarantee of the accuracy or completeness of information in this document.
== END 2023-06-26 10:38 | disposition home or self-care (01) ==
LOC: EC 10:37
PROVIDERS: Visit Provider Podiatrist Foot & Ankle Surgery
DX: M20.11 Hallux valgus (acquired), right foot (principal); Z98.890 Other specified postprocedural states
CPT/HCPCS: 73630

== ENCOUNTER 2023-07-17 09:24 | Outpatient (OUT) | payer OTHER, SELFPAY ==
--- NOTE | 2023-07-17 | XR_ITS ---
[address] [address] Patient Name: IVETTE COREY MRN: [id number] date: 1990 Sex: F Assigned Patient Location: Current Patient Location: Accession/Order Number: [id number] Exam Date: 07/17/2023 09:25 Report Date: 07/17/2023 09:45 At the request of: PREMA ESPANA Procedure: XR foot RT min 3V PROCEDURE: XR foot RT min 3V COMPARISON: 06/26/2023 HISTORY: RIGHT FOOT PAIN FINDINGS: BONES:Stable fusion first metatarsal-phalangeal joint with a dorsal plate and multiple screws. Remote resection head of the second proximal phalanx. No acute fracture, dislocation or mechanical failure SOFT TISSUES:Negative. No visible soft tissue swelling. EFFUSION:None visible. OTHER: Negative. XR/XR foot RT min 3V IMPRESSION: Stable postsurgical changes Electronically authenticated by: AI VERA Date: 07/17/2023 09:45
--- OUTSIDE RECORDS SUMMARY | 2023-07-17 09:56 | XMS_ITS | CCD ---
Author Organization [facility] Care Team Providers Care Data Security Administrator Name Role Phone Unavailable Primary Care Provider [...] Topical, 2 TIMES DAILY, First dose on 09/11/20 at 0215 Apply to perineal area. Patient [...] Urine test positive; Translations: [Normal ] Onset: 03-09-2020 Resolved: 10-26-2020 03-09-2020 Episodic Other screening for [...] stain.thin prep Doc (Cvx/Vag) (NOTE) Path Number: [id number] DIAGNOSIS Imaged ThinPrep Pap - Cervical (1 monolayer slide): Specimen Adequacy: Satisfactory for evaluation. -Endocervical/trans formation zone component is absent. Descriptive Diagnosis: Negative for intraepithelial lesion or malignancy. Cytotech Screener: EY Electronically Signed Out Ronak MELENDEZ(ASCP) ey/04/01/2023 Source of Specimen: A: Imaged ThinPrep Pap - Cervical (1 monolayer slide) HPV Reflex?............ 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 [place], [place] [address] [facility] CBC With Auto Differentialon 01-11-2021 Absolute Eos # 0.07 [facility] Absolute Immature Granulocyte <0.03 [facility] Absolute Lymph # 2.01 [facility] He alth Absolute [place] # 0.45 [facility] lth Basophils (Bld) [#/Vol] 0.03 10*3/uL [facility] Basophils/100 WBC (Bld) 1 % 0 - 2 % [facility] [employer] Differential Type NOT REPORTED [facility] Eosinophils/100 WBC (Bld) 1 % 1 - 4 % [facility] Hematocrit (Bld) [Volume fraction] 40.3 % 36.3 - 47.1 % [facility] Hemoglobin.gastrointesti nal spec 1 Ql (Stl) 13.2 g/dL 11.9 - 15.1 g/dL [facility] Immature granulocytes/100 WBC (Bld) 0 % 0 [facility] Lymphocytes/100 WBC (Bld) 39 % 24 - 43 % [facility] MCH (RBC) [Entitic mass] 30.9 pg 25.2 - 33.5 pg [facility] MCHC (RBC) [Mass/Vol] 32.8 g/dL 28.4 - 34.8 g/dL [facility] MCV (RBC) [Entitic vol] 94.4 fL 82.6 - 102.9 fL [facility] Monocytes/100 WBC (Bld) 9 % 3 - 12 % [facility] NRBC Automated 0.0 0.0 per 100 WBC [facility] Platelet distribution width (Bld) [Ratio] 11.8 % 11.8 - 14.4 % [facility] Platelet Estimate NOT REPORTED [facility] Platelet mean volume (Bld) [Entitic vol] 9.5 fL 8.1 - 13.5 fL [facility] Platelets (Bld) [#/Vol] 239 10*3/uL [facility] RBC (Bld) [#/Vol] 4.27 10*6/uL 3.95 - 5.1 1 m/uL [facility] RBC (Bld) [#/Vol] NOT REPORTED [facility] Segmented neutrophils/100 WBC (Bld) 50 % 36 - 65 % [email or web address] Segs Absolute 2.61 [facility] WBC (Bld) [#/Vol] 5.2 10*3/uL [email or web address] WBC (Bld) [#/Vol] NOT REPORTED [facility] hCG, Quantitative, on 01-11-2021 hCG Quant <1 <5 IU/L [email or web address] Comment on above: Non-preg premeno <=5 Postmeno <=8 Male <=3 If HCG results do not concur with clinical observations, additional testing to confirm results is recommended. Elevated results not associated with may be found in patients with other diseases such as tumors of the germ cells (testis, ovaries, etc.), bladder, pancreas, stomach, lungs, and liver. [email or web address] CBC auto differentialOrdered By: Elly Yanes on 09-10-2020 Absolute Eos # 0.07 [facility] Work Phone: Absolute Immature Granulocyte 0.12 [email or web address] Work Phone: Absolute Lymph # 2.16 [employer] Work Phone: Absolute [place] # 0.75 [employer] Work Phone: Basophils (Bld) [#/Vol] 0.03 10*3/uL [email or web address] Work Phone: Basophils/100 WBC (Bld) 0 % 0 - 2 % [facility] Work Phone: Differential Type NOT REPORTED [email or web address] Work Phone: Eosinophils/100 WBC (Bld) 1 % 1 - 4 % [facility] Work Phone: Hematocrit (Bld) [Volume fraction] 39.0 % 36.3 - 47.1 % [facility] Work Phone: Hemoglobin.gastrointesti nal spec 1 Ql (Stl) 13.3 g/dL 11.9 - 15.1 g/dL [email or web address] Work Phone: Immature granulocytes/100 WBC (Bld) 1 % High 0 [employer] Phone: Interpretation and review of laboratory results Abnormal [employer] Phone: Lymphocytes/100 WBC (Bld) 23 % Low 24 - 43 % [employer] Phone: MCH (RBC) [Entitic mass] 33.4 pg 25.2 - 33.5 pg [employer] Phone: MCHC (RBC) [Mass/Vol] 34.1 g/dL 28.4 - 34.8 g/dL [employer] Phone: MCV (RBC) [Entitic vol] 98.0 fL 82.6 - 102.9 fL [employer] Phone: Monocytes/100 WBC (Bld) 8 % 3 - 12 % [employer] Phone: NRBC Automated 0.0 0.0 per 100 WBC [employer] Phone: Platelet distribution width (Bld) [Ratio] 12.5 % 11.8 - 14.4 % [employer] Phone: Platelet Estimate NOT REPORTED [employer] Phone: Platelet mean volume (Bld) [Entitic vol] 9.4 fL 8.1 - 13.5 fL [employer] Phone: Platelets (Bld) [#/Vol] 157 10*3/uL [employer] Phone: RBC (Bld) [#/Vol] 3.98 10*6/uL 3.95 - 5.1 1 m/uL [employer] Phone: RBC (Bld) [#/Vol] NOT REPORTED [employer] Phone: Segmented neutrophils/100 WBC (Bld) 67 % High 36 - 65 % [employer] Phone: Segs Absolute 6.09 [employer] Work Phone: WBC (Bld) [#/Vol] 9.2 10*3/uL [facility] Work Phone: WBC (Bld) [#/Vol] NOT REPORTED [facility] Work Phone: [facility] Work Phone: DRUG SCREEN MULTI URINEOrder ed By: Elly Yanes on 09-10-2020 Amphetamine Screen, Ur Negative NEGATIVE [...] MDMA, Urine NOT REPORTED NE[facility]IVE [facility] Work Phone: Methadone Screen, Urine Negative NEGATIVE [facility] Work Phone: Methamphetamine, Urine Negative NEGATIVE [facility] Work Phone: Opiates, Urine Negative NEGATIVE [facility] Work Phone: Oxycodone Screen, Ur Negative NEGATIVE [facility] Work Phone: Phencyclidine, Urine Negative NEGATIVE [facility] Work Phone: Propoxyphene, Urine Negative NEGATIVE [facility] Work Phone: Test Information NOT REPORTED [facility] Work Phone: Tricyclic Antidepressants, Urine Negative NEGATIVE [facility] Work Phone: Comment on above: Drug screen results are to be used for medical purposes only. All positive results are unconfirmed. Testing for employment or legal uses should be sent to a reference laboratory for confirmation. [facility] Work Phone: OB FOLLOW UP TRANSABDOMIN AL APPROACHon 07-05-2020 OB FOLLOW UP TRANSABDOMINAL APPROACH 31.0 WK IUP EFW:65% CL:3.6cm UYEN:17.7cm HR:158bpm posterior placenta, cephalic presentation Active movements Grade 2 placenta Interpreted by: CARLEY Campos CNM, MD Signed by: Haseeb Montero MD 07/05/20 Final result Normal [facility] Glucose tolerance, 1 hourOrd ered By: Elly Yanes on 06-19-2020 GLU ADMN Glucola [employer] Phone: Glucose tolerance screen 50g 104 mg/dL 70 - 135 mg/dL [employer] Phone: HemoglobinOrdered By: Roxann Yanes on 06-19-2020 Hemoglobin.gastrointesti nal spec 1 Ql (Stl) 11.8 g/dL Low 11.9 - 15.1 g/dL [employer] Phone: Interpretation and review of laboratory results Abnormal [employer] Phone: OB 14 PLUS WEEKS SINGLE O R FIRST GESTATIONon 04-26-2020 OB 14 PLUS WEEKS SINGLE OR FIRST GESTATION 20.0WK IUP CL: 4.3 cm HR: 155 bpm Posterior placenta, breech presentation Ovaries: Adnexa WNL Gender: male Active movements All visualized anatomy WNL Interpreted by: CARLEY Campos CNM, MD Signed by: Haseeb Montero MD 04/26/20 Final result Normal [facility] HIV Screenon 02-08-2020 HIV Ag/Ab NONREACTIVE NONREACTIVE [place], [place] Comment on above: No laboratory eviden ce of HIV infection. If acute HIV infection is suspected, consider testing for HIV-1 RNA. TYPE AND SCREENon 1 04-10-2019 ABO/Rh Positive [place], [place] Urine Drug Screen, Comprehen siveon 02-08-2020 Amphetamine Screen, Ur Negative NEGATIVE [place], [place] Barbiturate Screen, Ur Negative NEGATIVE [facility] [place] [place] Benzodiazepine Screen, Urine Negative NEGATIVE [facility] [place] Buprenorphine Urine Negative NEGATIVE [facility] [place] Cannabinoid Scrn, Ur Negative NEGATIVE [facility] [place] Cocaine Metabolite, Urine Negative NEGATIVE [facility] [place] MDMA, Urine NOT REPORTED NEGATIVE [facility] [place] Methadone Screen, Urine Negative NEGATIVE [facility] [place] Methamphetamine, Urine Negative NEGATIVE [facility] [place] Opiates, Urine Negative NEGATIVE [facility] [place] Oxycodone Screen, Ur Negative NEGATIVE [facility] [place] Phencyclidine, Urine Negative NEGATIVE [facility] [place] [place] Propoxyphene, Urine Negative NEGATIVE [facility] [place] Test Information NOT REPORTED [facility] [place] Tricyclic Antidepressants, Urine Negative NEGATIVE [facility] [place] Comment on above: Drug screen results are to be used for medical purposes only. All positive results are unconfirmed. Testing for employment or legal uses should be sent to a reference laboratory for confirmation. Vital Signs Date Time Vital Sign Value Performing Clinician Faci lity 09-12-2020 13:51-0400 Body temperature 97.9 [degF] [employer] Work Phone: [email or web address] Work Phone: 09-12-2020 13:51-0400 Diastolic blood pressure 77 mm[Hg] [employer] [employer] Work Phone: [email or web address] Work Phone: 09-12-2020 13:51-0400 Heart rate 103 /min [employer] [place] [employer] Work Phone: [email or web address] Work Phone: 09-12-2020 13:51-0400 Respiratory rate 18 /min [employer] Work Phone: [email or web address] Work Phone: 09-12-2020 13:51-0400 Systolic blood pressure 129 mm[Hg] [employer] Work Phone: [email or web address] Work Phone: Encounters Encounter Date Encounter Type Care Provider Facility Start: 03-12-2023 End: 03-13-2023 ambulatory ELLY Olvera [facility] Start: 03-12-2023 Encounter for gynecological examination (general) (routine) without abnormal findings ELLY [facility] Start: 03-12-2023 End: 03-12-2023 Patient encounter procedure None None [facility] Start: 03-12-2023 End: 03-12-2023 Subsequent hospital visit by physician None None [facility] Laboratory Comment on above: Well woman exam with routine gynecological exam Start: 03-06-2022 End: 03-06-2022 Patient encounter procedure None [facility] Start: 03-06-2022 End: 03-06-2022 Subsequent hospital visit by physician None None [facility] Comment on above: Well woman exam with routine gynecological exam; Screening for HPV (human papillomavirus); Dysplasia of cervix, low grade (BECKY 1) Start: 01-11-2021 End: 01-11-2021 Subsequent hospital visit [facility] Comment on above: Abnormal vaginal ble eding Start: 01-03-2021 End: 01-03-2021 Subsequent hospital visit by [facility] Comment on above: 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 Start: 09-10-2020 End: 09-12-2020 Evaluation and management of inpatient Elly Yanes FOXER - CNM Work Phone: [facility] Delivery Start: 08-24-2020 End: 08-24-2020 Subsequent hospital visit [facility] Comment on above: 37 weeks gestation o f Start: 06-19-2020 End: 06-19-2020 Subsequent hospital visit by [facility] Comment on above: Encounter for screen ing examination for impaired glucose regulation and diabetes mellitus; 26 weeks gestation of Start: 04-06-2020 End: 04-06-2020 Subsequent hospital visit [facility] Comment on above: 17 weeks gestation o f ; Encounter for supervision of normal first , second trimester Start: 03-09-2020 End: 03-09-2020 Subsequent hospital visit by physician [facility] Comment on above: 13 weeks gestation [...] Gonadotropin chorion ic quantitative Elly E Pool FOXER - CNM Work Phone: Start: 09-10-2020 Blood count complete auto&auto difrntl wbc Elly E Pool FOXER - CNM Work Phone: Start: 09-10-2020 Drug screen class list a Elly E Pool FOXER - CNM Work Phone: Start: 06-19-2020 Blood count hemoglobin Elly E Pool FOXER - CNM Work Phone: Start: 03-09-2020 Microscopic [...] DTaP/Tdap/Td vaccine (8 - Td or Tdap) [facility] Start: 03-06-2027 Screening for malign ant neoplasm of cervix [facility] Start: 03-09-2025 Screening for malign ant neoplasm of cervix [facility] Start: 03-06-2025 Screening for malign ant neoplasm of cervix Pap smear [facility] Start: 03-15-2024 End: 03-15-2024 Patient encounter procedure 03/15/2024 1:00 PM EST Office Visit [facility] Part of [facility] [address] [place] [address] Elly Yanes APRN - CNM [address] [place] [address] yearly [facility] Comment on above: yearly Start: 03-12-2024 Depression Screen Depression Screen [facility] Start: 03-12-2023 End: 03-12-2023 Patient encounter procedure 03/12/2023 Office Visit Obstetrics and Gynecology Elly Yanes APRN - CNM [address] [place] [address] [facility] Start: 03-09-2023 Screening for malign ant neoplasm of cervix [facility] Start: 09-24-2022 Influenza vaccination Flu vaccine (# 1) [facility] Start: 01-03-2022 End: 01-03-2022 Patient encounter procedure 01/03/2022 Office Visit Obstetrics and Gynecology Elly Yanes APRN - CNM [address] [place] [address] [facility] Start: 09-24-2021 Influenza vaccination Flu vaccine (# 1) [facility] Start: 01-15-2021 End: 01-15-2021 Patient encounter procedure 01/15/2021 Appointment Radiology [facility] Ultrasound Start: 10-25-2020 Influenza vaccination [facility] Start: 10-24-2020 End: 10-24-2020 ambulatory 10/24/2020 Visit Obstetrics and Gynecology Elly Yanes APRN - CNM [address] [place] [address] [facility] Start: 09-26-2020 End: 09-26-2020 Telemedicine consultation with patient 09/26/2020 Telemedicine Obstetrics and Gynecology Elly Yanes FOXER - CNM [address] [place] [address] [phone] [facility] Start: 09-11-2020 End: 09-11-2020 Patient encounter procedure 09/11/2020 Routine Obstetrics and Gynecology Winifred Torres, CARLEY - CNM [address] [place] [address] [phone] [facility] Start: 09-07-2020 End: 09-07-2020 Patient encounter procedure 09/07/2020 Routine Obstetrics and Gynecology Elly Yanes APRN - CNTiffani [address] [place] [address] [phone] [facility] Start: 08-30-2020 End: 08-30-2020 Patient encounter procedure 08/30/2020 Routine Obstetrics and Gynecology Elly Yanes, FOXER - CNM [address] [place] [address] [phone] [facility] Start: 07-05-2020 End: 07-05-2020 Ancillary Procedure [facility] Start: 06-20-2020 End: 06-20-2020 Patient encounter procedure 06/20/2020 Routine Obstetrics and Gynecology Elly Yanes APRN - CNTiffani [address] [place] [address] [phone] [facility] Start: 04-26-2020 End: 04-26-2020 Ancillary Procedure [facility] Start: 04-20-2020 End: 04-20-2020 Office Visit 04/20/2020 Office Visit Obstetrics and Gynecology Elly Yanes, FOXER - CNM [address] [place] [address] [phone] [facility] Start: 04-08-2020 Screening for malign ant neoplasm of cervix Cervical cancer screen [place], [place] Start: 04-06-2020 End: 04-06-2020 Routine 04/06/2020 Routine Obstetrics and Gynecology Elly Yanes APRN - CNTiffani [address] [place] [address] [phone] [facility] Start: 02-16-2020 End: 02-16-2020 Ancillary Procedure 02/16/2020 Ancillary Procedure Obstetrics and Gynecology Elly Yanes APRN - CNTiffani [address] [place] [address] [facility] Start: 10-26-2019 Influenza vaccination Flu vaccine (# 1) [place] Start: 2009 DTaP/Tdap/Td vaccine (1 - Tdap) DTaP/Tdap/Td vaccine (1 - Tdap) [place], [place] Start: 2006 COVID-19 Vaccine (1) COVID-19 Vaccin e (1) [facility] Work Phone: Start: 2002 COVID-19 Vaccine (1) COVID-19 Vaccin e (1) [facility] Start: 2002 Depression Screen Depression Screen [facility] Start: 06-19-1995 COVID-19 Vaccine (1) COVID-19 Vaccin e (1) [facility] Start: 02-18-1995 Varicella vaccine (2 of 2 - 2-dose childhood series) Varicella vaccine (2 of 2 - 2-dose childhood series) [facility] Start: 06-19-1991 Varicella vaccine (1 of 2 - 2-dose childhood series) Varicella vaccine (1 of 2 - 2-dose childhood series) [place] Start: 1990 COVID-19 Vaccine (#1) COVID-19 Vacci ne (#1) [facility] End: 04-06-2020 Alpha Fetoprotein, Maternal Alpha Fetoprotein, Maternal Lab Routine 17 weeks gestation of Encounter for supervision of normal first , second trimester 1 Occurrences starting 04/06/2020 until 04/06/2020 [employer] Phone: Comment on above: 1 Occurrences starti ng 04/06/2020 until 04/06/2020 Alpha Fetoprotein, Maternal Alpha Fetoprotein, Maternal Lab Routine 17 weeks gestation of Encounter for supervision of normal first , second trimester 04/06/2020 10:09 AM [employer] Phone: End: 03-09-2020 C.trachomatis N.gonorrhoeae DNA, Thin Prep C.trachomatis N.gonorrhoeae DNA, Thin Prep Microbiology Routine 13 weeks gestation of Chlamydia contact, treated 1 Occurrences starting 03/09/2020 until 03/09/2020 [place] Comment on above: 1 Occurrences starti ng 03/09/2020 until 03/09/2020 C.trachomatis N.gonorrhoeae DNA, Thin Prep C.trachomatis N.gonorrhoeae DNA, Thin Prep Microbiology Routine 13 weeks gestation of Chlamydia contact, treated 03/09/2020 11:41 AM [employer] [place] End: 02-08-2020 C.trachomatis N.gonorrhoeae DNA, Urine C.trachomatis N.gonorrhoeae DNA, Urine Microbiology Routine Amenorrhea Positive urine test Encounter for supervision of normal first in first trimester 1 Occurrences starting 02/08/2020 until 02/08/2020 [place] Comment on above: 1 Occurrences starti ng 02/08/2020 until 02/08/2020 C.trachomatis N.gonorrhoeae DNA, Urine C.trachomatis N.gonorrhoeae DNA, Urine Microbiology Routine Amenorrhea Positive urine test Encounter for supervision of normal first in first trimester 02/08/2020 9:00 AM [facility] [place] End: 08-24-2020 Culture, Strep B Screen, Vaginal/Rectal Culture, Strep B Screen, Vaginal/Rectal Microbiology Routine 37 weeks gestation of 1 Occurrences starting 08/24/2020 until 08/24/2020 [employer] Phone: Comment on above: 1 Occurrences starti ng 08/24/2020 until 08/24/2020 Culture, Strep B Scr een, Vaginal/Rectal Culture, Strep B Screen, Vaginal/Rectal Microbiology Routine 37 weeks gestation of 08/24/2020 11:53 AM EDT [employer] Phone: End: 02-08-2020 Culture, Urine Culture, Urine Microbiology Routine Amenorrhea Positive urine test Encounter for supervision of normal first in first trimester 1 Occurrences starting 02/08/2020 until 02/08/2020 [facility] [place] Comment on above: 1 Occurrences starti ng 02/08/2020 until 02/08/2020 Culture, Urine Culture, Urine Microbiology Routine Amenorrhea Positive urine test Encounter for supervision of normal first in first trimester 02/08/2020 9:00 AM [place] End: 03-09-2020 Cytopathology procedure, preparation of smear, genital source PAP SMEAR Lab Routine 13 weeks gestation of 1 Occurrences starting 03/09/2020 until 03/09/2020 [facility] [place] Comment on above: 1 Occurrences starti ng 03/09/2020 until 03/09/2020 End: 03-06-2022 Cytopathology procedure, preparation of smear, genital source PAP SMEAR Lab Routine Well woman exam with routine gynecological exam Screening for HPV (human papillomavirus) Dysplasia of cervix, low grade (BECKY 1) 1 Occurrences starting 03/06/2022 until 03/06/2022 [employer] Work Phone: Comment on above: 1 Occurrences starti ng 03/06/2022 until 03/06/2022 End: 03-12-2023 Cytopathology procedure, preparation of smear, genital source PAP SMEAR Lab Routine Well woman exam with routine gynecological exam 1 Occurrences starting 03/12/2023 until 03/12/2023 [facility] [employer] Comment on above: 1 Occurrences starti ng 03/12/2023 until 03/12/2023 End: 02-08-2020 Hepatitis C Antibody Hepatitis C Antibody Lab Routine Amenorrhea Positive urine test Encounter for supervision of normal first in first trimester 1 Occurrences starting 02/08/2020 until 02/08/2020 [facility] [employer] [place] Comment on above: 1 Occurrences starti ng 02/08/2020 until 02/08/2020 Hepatitis C Antibody Hepatitis C Antibody Lab Routine Amenorrhea Positive urine test Encounter for supervision of normal first in first trimester 02/08/2020 9:56 AM [facility] Lab Routine Amenorrhea Positive urine test Encounter for supervision of normal first in first trimester 02/08/2020 9:55 AM [facility] End: 01-03-2021 Surgical Pathology Surgical Pathology Lab Routine LGSIL on Pap smear of cervix 1 Occurrences starting 01/03/2021 until 01/03/2021 [email or web address] Work Phone: Comment on above: 1 Occurrences starti ng 01/03/2021 until 01/03/2021 Immunizations Immunization Date Immunization Notes Care Provider Fa cili 09-11-2020 diphtheria, tetanus toxoids and acellular pertussis vaccine, unspecified formulation [employer] FOXER - CNM Work Phone: [email or web address] Work Phone: 09-11-2020 measles, mumps and rubella virus vaccine Elly Pyreg FOXER - CNM Work Phone: [email or web address] Work Phone: 07-05-2020 tetanus toxoid, redu valery diphtheria toxoid, and acellular pertussis vaccine, adsorbed [facility] Payers Date Payer Category Payer Unknown [facility] [id number] 2021-2021 [address] [address] [place] [address] [id number] 2019 Unknown [id number] 2019 Unknown [id number] 2017 Unknown BCBS [place] - [place] P PO [id number] 2017-Present [address] [place] [address] [id number] 1990 Unknown [id number] Social History Date Type Detail Facility Start: 02-08-2020 End: 03-06-2022 Tobacco smoking status NHIS Former smoker [place], [place] History of tobacco use Cigarette Smoker [place] Start: 02-08-2020 End: 03-06-2022 Tobacco use and exposure Never used [place], [place] Start: 02-08-2020 End: 01-03-2021 Alcohol intake Ex-drinker (finding) [facility] Start: 03-28-2016 Alcohol Comment Social [place], [place] Start: 12-22-2019 [place], [place] Start: 1990 Sex Assigned At Not on file [place] Exposure to SARS-CoV -2 (event) Not sure [place], [place] History of tobacco use Current smoker [facility] Work Phone: Start: 03-06-2022 End: 03-12-2023 Alcohol intake Current drinker of alcohol (finding) [facility] L3 Phone: Start: 1990 Sex Assigned At Female B ON [facility] Start: 03-12-2023 History of Social function [facility] Start: 03-12-2023 Tobacco use panel [facility] Patient Health Questionnaire 9 item (PHQ-9) total score [Reported] 0 [facility] Start: 04-26-2021 Gender identity Identifies as female gender (finding) [facility] Hospital Discharge instructions 09-12-2020 Instructions Note Date & Type Note Facility 09-12-2020 Hospital Discharg e instructions Nubia Ren, RN - 09/12/2020 Follow-up with your OB doctor as specified. [facility] OB Department phone: Dr. Kylah DERAS Dr. Laureen Torres CNM [address] [facility] [address] [place] [address] Laureen Sylvester CN [address] [facility] [id number] [phone] Leeann Sharif, MSN, FOXER, CNM [facility] [address] [facility] [address] [address] [id number] Winifredchemo Hays CNM [address] [place] [address] [place] [address] Angi eTrrell CNM [address] [place] [address] [place] [address] [phone] DIET Eat a well balanced diet focusing on foods high in fiber and protein. Drink plenty of fluids especially water. To avoid constipation you may take a mild stool softener as recommended by your doctor or heavy repairer. ACTIVITY Gradually increase your activity. Resume exercise regimen only after advice by your doctor or heavy repairer. Avoid lifting anything heavier than a gallon of milk for SIX weeks. Avoid driving until your doctor or heavy repairer has given their approval. Rise slowly from [...] of harming yourself or your . If infant will not stop crying, contact another adult for help or place infant in their crib on their back and take a break. NEVER shake your infant. BLEEDING Vaginal bleeding will decrease in amount [...] medications as recommended by your doctor or heavy repairer for pain If you develop a warm, [...] vitamins as directed by your doctor or heavy repairer. Refer to the booklet in the folder/binder for more information. If you feel you need more assistance or have questions, please call Thuy Snyder IBCLC, seo consultant, at or the OB department to [...] they become loose or soiled. If used, [place] should be removed by your care provider. [...] in your calf. documented in this encounter [employer] Phone: Hospital course Narrative 09-12-2020 Winifred Torres, FOXER - CNM - 09/12/2020 8:38 AM EDT Note Date & Type Note Facility 09-12-2020 Hospital course Narrative Obstetrical Discharge Form Gestational Age:39w4d Antepartum complications: none Date of Delivery: 09/10/20 Type of Delivery: Delivered By: Juan Yanes APRN CNTiffani Assisted By:N/A} Baby: male Anesthesia: none Intrapartum [...] NONREACTIVE Final HIV: No results found for: [id number] Results for orders placed or performed during [...] # 2.16 1.10 - 3.70 k/uL Absolute [place] # 0.75 0.10 - 1.20 k/uL Absolute [...] 6 weeks visits documented in this encounter [employer] Phone: History of Present illness Narrative 09-12-2020 Winifred Torres, FOXER [facility] - 09/12/2020 8:37 AM Elly Hussein FOXER [facility] - 09/11/2020 7:58 AM [...] 117/74 86 09/11/20 0140 (!) 111/55 90 09/11/20 0125 (!) 155/74 09/11/20 0108 (!) 116/55 [...] 99/55 70 09/10/20 1115 (!) 112/57 75 09/10/20 1045 123/73 74 09/10/20 1015 127/62 98.1 [...] DERASM at bedside to attend delivery, Tracy Yanes CNM updated with SVE and patient position. Tracy Yanes CNM updated with SVE, patient pain rating, pitocin rate and contraction pattern. Tracy Yanes CNM updated with patient SVE, pain medication intervention and position change. Juan Yanes CNM updated with patient SVE, pitocin rate, contraction pattern, position change and pain rating. CNM stated okay to increase pitocin to 24milli-unit/hr. Pt in hands and knee on nick bag Juan Yanes CNM in pt's room for sve and arom documented in this encounter [employer] Phone: Evaluation note Note Date & Type Note Facility Evaluation note Diagnosis Encounter for screening examination for impaired glucose regulation and diabetes mellitus 26 weeks gestation of state, incidental documented in this encounter [employer] Phone: Evaluation note Note Date & Type Note Facility Evaluation note Diagnosis 37 weeks gestation of state, incidental documented in this encounter [employer] Phone: Evaluation note Note Date & Type Note Facility Evaluation note Diagnosis Encounter for elective induction of labor (normal spontaneous vaginal delivery) Normal delivery Normal delivery documented in this encounter [employer] Phone: Evaluation note Note Date & Type Note Facility Evaluation note Diagnosis LGSIL on Pap smear of cervix documented in this encounter [employer] Phone: Evaluation note Note Date & Type Note Facility Evaluation note Diagnosis Abnormal vaginal bleeding Other specified noninflammatory disorder of vagina documented in this encounter [employer] Phone: Evaluation note Note Date & Type Note Facility Evaluation note Diagnosis Well woman exam with routine gynecological exam Routine gynecological examination Screening for HPV (human papillomavirus) Special screening examination for human papillomavirus (HPV) Dysplasia of cervix, low grade (BECKY 1) Mild dysplasia of cervix documented in this encounter [employer] Phone: Evaluation note Note Date & Type Note Facility Evaluation note Diagnosis Well woman exam with routine gynecological exam Routine gynecological examination documented in this encounter [employer] Diagnosis Amenorrhea Absence of menstruation Positive urine [...] FoundDocuments on File Type Date Recorded 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 [place] [address] [facility] Scheduled Active and Recently Administ ered [...] Thuy Snyder IBCLC)2141 (Given - Provider: Keyanna A Wainaku, RN) 0618 (Given - Provider: Keyanna Jolly RN)1401 (Given - Provider: Nubia Ren, ARMIDA)1815 (Due) measles, mumps & rubella vaccine (MMR) injection 0.5 mL 0.5 mL, Subcutaneous, PRIOR TO DISCHARGE, Starting on Fri09/11/20 at 0156, For 1 dose, sodium chloride flush 0.9 % injection 10 mL 10 mL, Intravenous, EVERY 12 HOURS SCHEDULED (2 times per day), First dose on Fri09/11/20 at 0900, 0900 (Due)2100 (Due) 0900 (Due)2100 (Due) Pnzbwsi-Ozpjmm-Dwepq Pertussis (BOOSTRIX) injection 0.5 mL 0.5 mL, Intramuscular, PRIOR TO DISCHARGE, Starting on Fri09/11/20 at 0156, For 1 dose, If not previously administered during at 27-36 weeks as recommended by CDC., witch nessa-glycerin (TUCKS) pad Topical, 2 TIMES DAILY, First dose on Fri09/11/20 at 0215, Apply to perineal area. Patient is capable and may self administer at bedside., 0211 (Given - Provider: Betzaida Beyer RN)0900 (Due)2100 (Due) 0900 (Due)2100 (Due) Continuous Medication Order 09/10/2020 09/11/2020 09/12/2020 lactated ringers infusion (CANCELED) Intravenous, at 125 mL/hr, CONTINUOUS, Starting on Fri09/10/20 at 0530, Labor and Delivery 0530 (New Bag - Provider: Neda Willard RN)0700 (Rate/Dose Change - Provider: Neda Willard RN)0720 (Rate/Dose Change - Provider: Neda Willard, ARMIDA)1727 (New Bag - Provider: Latonia Bauer RN)2000 (Rate/Dose Change - Provider: Betzaida Beyer RN)213 [...] every 2-3 minutes with cervical changes or [place] units (MVU) greater than 200 in a [...] 0600 (New Bag - Provider: Neda Willard, ARMIDA)0630 (Rate/Dose Change - Provider: Neda Willard RN)0700 (Rate/Dose Change - Provider: Neda Willard RN)0730 (Rate/Dose Change - Provider: Shyanne Lambert RN)0800 (Rate/Dose Change - Provider: Shyanne Lambert RN)0830 (Rate/Dose Change - Provider: Shyanne Lambert RN)0900 (Rate/Dose Change - Provider: Shyanne Lambert RN)0930 (Rate/Dose Change - Provider: Shyanne Lambert RN)1000 (Rate/Dose Change - Provider: Shyanne Lambert RN)1030 (Rate/Dose Change - Provider: Shyanne Lambert, ARMIDA)1100 (Rate/Dose Change - Provider: Shyanne Lambert RN)1130 (Rate/Dose Change - Provider: Shyanne Lambert RN)1200 (Rate/Dose Change - Provider: Shyanne Lambert, ARMIDA)1700 (Rate/Dose Change - Provider: Shyanne Lambert, ARMIDA)1730 (Rate/Dose Change - Provider: Shyanne Lambert RN)1800 (Rate/Dose Change - Provider: Shyanne Lambert, ARMIDA)1830 [...] mg from all sources in 24 hours., 1641 (Given - Provider: Gwendolyn Knox RN) docusate [...] on Fri09/10/20 at 0511, Labor and Delivery 1929 (Rate/Dose Change - Provider: Betzaida Beyer RN [...] Provider: Betzaida Beyer RN - Comment: brandt Yanes CNM at bedside)2350 (Rate/Dose Change - Provider: Betzaida Beyer RN) 0009 (New Bag - Provider: Betzaida Beyer RN)0010 (Rate/Dose Change - Provider: Betzaida Beyer RN) sodium chloride flush 0.9 % injection 10 mL 10 mL, Intravenous, PRN, Line Care, Starting on 09/11/20 at 0156, After every IV line use, INFORMATION SOURCE (unrecogn ized section and content) DATE CREATED AUTHOR 01/04/2021 [facility] DATE CREATED AUTHOR AUTHOR'S ORGANIZ ATION 04/01/2023 [facility] May vuong FOR RECORDS PERTAINING TO [...] BE BASED ON THE PRIMARY CLINICAL RECORDS. [facility]. provides no warranty or guarantee of the accuracy or completeness of information in this document.
== END 2023-07-17 09:25 | disposition home or self-care (01) ==
LOC: EC 09:24
PROVIDERS: Visit Provider Physician Assistant
DX: M79.671 Pain in right foot (principal); Z98.890 Other specified postprocedural states
CPT/HCPCS: 73630

== ENCOUNTER 2023-08-27 08:56 | Outpatient (OUT) | payer OTHER, SELFPAY ==
--- NOTE | 2023-08-27 | XR_ITS ---
The [address] [address] Patient Name: IVETTE COREY MRN: [id number] date: 1990 Sex: F Assigned Patient Location: Current Patient Location: Accession/Order Number: [id number] Exam Date: 08/27/2023 08:58 Report Date: 08/28/2023 05:21 At the request of: MEENAKSHI PRIEST Procedure: XR foot RT min 3V PROCEDURE: XR foot RT min 3V HISTORY: RIGHT FOOT PAIN COMPARISON: XR foot right 07/17/2023 FINDINGS: BONES:Mechanical fusion of the first metatarsophalangeal joint via dorsal plate and screws. Resection of head of second proximal phalanx. No fracture, dislocation, or bone lesion. SOFT TISSUES:No visible soft tissue swelling. EFFUSION:None visible. OTHER: Negative. XR/XR foot RT min 3V IMPRESSION: 1. Stable surgical changes without evidence of hardware failure or change in alignment. Electronically authenticated by: CALLUM MARQUEZ Date: 08/28/2023 05:21
== END 2023-08-27 08:57 | disposition home or self-care (01) ==
LOC: EC 08:56
PROVIDERS: Visit Provider Podiatrist Foot & Ankle Surgery
DX: M79.671 Pain in right foot (principal); Z98.890 Other specified postprocedural states
CPT/HCPCS: 73630

== ENCOUNTER 2023-12-16 12:50 | Outpatient (OUT) | payer OTHER, SELFPAY ==
--- NOTE | 2023-12-16 | XR_ITS ---
The [address] [address] Patient Name: IVETTE COREY MRN: [id number] date: 1990 Sex: F Assigned Patient Location: [facility] Current Patient Location: [facility] Accession/Order Number: [id number] Exam Date: 12/16/2023 12:59 Report Date: 12/21/2023 06:54 At the request of: PREMA ESPANA Procedure: XR foot RT min 3V PROCEDURE: XR foot RT min 3V HISTORY: RIGHT FOOT PAIN COMPARISON: XR foot right 08/27/2023 FINDINGS: BONES:Mechanical fusion the first metatarsophalangeal joint via dorsal plate and screws. Resection of the head of the second proximal phalanx. No fracture, dislocation, bone lesion. SOFT TISSUES:No visible soft tissue swelling. EFFUSION:None visible. OTHER: Negative. XR/XR foot RT min 3V IMPRESSION: 1. Stable surgical changes without evidence of hardware failure or change in alignment. 2. No new or acute findings. Electronically authenticated by: CALLUM MARQUEZ Date: 12/21/2023 06:54
== END 2023-12-16 12:51 | disposition home or self-care (01) ==
LOC: RAD 12:50
PROVIDERS: Visit Provider Physician Assistant
DX: M79.671 Pain in right foot (principal); M24.674 Ankylosis, right foot
CPT/HCPCS: 73630